=== PATIENT | male | born 1930 | race Caucasian/White ===

== ENCOUNTER 2017-09-05 10:06 | Inpatient (IN) | payer MEDICARE, OTHER ==
[2017-09-05] MEDS ORDERED: Sodium Chloride 0.9% 100 ML ONE (11:01)
[2017-09-05 11:10] LABS: PTT 26.4 SEC (22.9-36.1); Prothrombin Time 13.3 SEC (12.0-14.7)
[2017-09-05 11:11] LABS: Hematocrit 41.2 % (42.0-52.0); Mean Platelet Volume 8.3 fL (7.4-10.4); Red Blood Cell (RBC) Count 4.58 mill/uL (4.70-6.10); White Blood Cell (WBC) Count 15.1 thou/uL (4.8-10.8)
--- NOTE | 2017-09-05 11:23 | RAD ---
THREE VIEWS LEFT ANKLE: HISTORY: Left ankle pain. FINDINGS: AP, lateral, and oblique views left ankle were obtained. Images demonstrate old healed fractures involving the distal left fibula and tibia. No acute fractu res or bony lesions seen. IMPRESSION: Old healed distal left tibial and fibula fractures. No acute left ankle abnormality seen. POS: [facility]
--- NOTE | 2017-09-05 11:25 | RAD ---
AP VIEW CHEST: HISTORY: Dyspnea. FINDINGS: Two AP views of the chest were obtained on 09/05/17. Comparison is made to a previous exam from 03/09. AP view chest demonstrates cardiomegaly noted. A dual-lead intracardiac pacing device is seen. The re is calcification and ectasia of the aorta. Areas of scar are seen in the right lung base. Radio graphic appearance of the chest is stable and unchanged. Old traumatic change is seen in the right shoulder and distal right clavicle. 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 IMPRESSION: No evidence of acute intrathoracic abnormality is seen. Cardiomegaly is noted. POS: [facility]
[2017-09-05 11:29] LABS: Troponin I 0.011 ng/mL (< 0.028)
[2017-09-05 11:39] LABS: Bilirubin Negative (Negative); Blood, Urine Negative (Negative); Glucose, Urine (Dipstick) Negative (Negative); Ketone, Urine Negative (Negative); Nitrite Negative (Negative); Protein, Urine (Dipstick) Negative (Neg-Trace); Urobilinogen 0.2 mg/dL (0.2-1.0)
[2017-09-05 11:39] LABS: ALT (SGPT) 10 U/L (8-55); AST (SGOT) 14 U/L (5-34); Alkaline Phosphatase 80 U/L (40-150); Anion Gap 11 mmol/L (10-20); BUN (Urea Nitrogen) 42 mg/dL (8.4-25.7); Bilirubin, Total 0.5 mg/dL (0.2-1.2); CK (CPK) 72 U/L (30-200); Calc. Creatinine Clearance 0 mL/min (70-130); Carbon Dioxide 28 mmol/L (23-31); Chloride 104 mmol/L (98-107); Estimated GFR-MDRD 74; Globulin 2.2 g/dL (2.4-3.5); Lipase 31 U/L (8-78); Protein, Total 5.8 g/dL (5.8-8.1)
[2017-09-05 11:42] LABS: Bacteria/HPF 4+ HPF (None Seen); Hyaline Casts/LPF 0-3 HYALINE CAST LPF (0-3 Hyaline); RBC/HPF 0-3 HPF (0-3); Squamous Epithelial 0-3 HPF (0-3)
[2017-09-05 11:45] LABS: Band 1 % (5-11); Neutrophil 53 % (42-75)
[2017-09-05] MEDS ORDERED: HYDROcodone/Acetaminophen 5/325 mg Tablet PO PRN (12:43)
[2017-09-05] MEDS ORDERED: Calcium Carbonate 500 MG ChewTAB PO PRN (12:43)
[2017-09-05] MEDS ORDERED: Bisacodyl 5 MG TAB PO PRN (12:43)
[2017-09-05] MEDS ORDERED: Acetaminophen 325 MG TAB PO PRN (12:43)
[2017-09-05] MEDS ORDERED: Ondansetron ODT 4 MG TAB PO PRN (12:43)
[2017-09-05] MEDS ORDERED: Furosemide 20 MG TAB PO PRN (12:48)
--- NOTE | 2017-09-05 13:42 | HP ---
CHIEF COMPLAINT: Left ankle pain. HISTORY OF PRESENT ILLNESS: This is an 86-year-old pleasant gentleman who lives in assisted facilit y, started having some throbbing pain in his left leg 1 week back. He also started noticing a small opening, possibly secondary to a bug bite. He is not sure which actually grew in size, but right n ow patient came into the hospital because the redness and pain increased and he was concerned that h e was developing cellulitis. The patient denied any subjective fever or chills. No nausea, vomitin g, chest pain, shortness of breath. Patient has been admitted for evaluation and treatment of that. PAST MEDICAL HISTORY: Significant for pacemaker placement in 02/[address] Reynaga, who is his c ardiologist, Dr. John Castillo, who is his regular doctor. 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 PAST SURGICAL HISTORY: Significant for colon surgery, hernia repair, right knee replaced, dc in th e femur, prostatectomy, and tonsillectomy. SOCIAL HISTORY: Does not smoke, drink or do any recreational drugs. MEDICATIONS: Please see MARS. Significant medications include citalopram 40 mg p.o. daily, Imbruvi ca 140 mg p.o. daily, lisinopril 20 mg p.o. daily, meloxicam p.r.n., spironolactone 25 p.o. daily, f exofenadine p.r.n., Lasix 20 mg p.o. daily, aspirin 325 mg p.o. daily, and gabapentin [facility]. ALLERGIES: No known drug allergies. FAMILY HISTORY: Negative for diabetes and hypertension. REVIEW OF SYSTEMS: Significant for no fever, no chills, no headache, no appetite, no latencies. No cough, no chest pain, diarrhea, dysuria, or polyuria. No memory or mood changes. No neck pain. S ignificant for leg pain and cellulitis. PHYSICAL EXAMINATION: VITAL SIGNS: Blood pressure is 138/57, pulse is 89, afebrile, breathing comfortably on room air. GENERAL: The patient is lying in bed in no apparent distress. HEENT: Atraumatic and normocephalic. Pupils equally round, react to light. Extraocular movements intact. Mucous membranes moist. NECK: Supple. No JVD. CHEST: Breath sounds heard. There are no rales or rhonchi. HEART: S1, S2, no murmurs or gallops. ABDOMEN: Soft. EXTREMITIES: No cyanosis, clubbing, or edema. Distal pulses present. Left extremity shows some fu ngal infection in the nail, thick nails, and groomed. Ankle on the medial malleolus on the left ank le shows open wound which is dry, no drainage from it cellulitis. There is erythema extending from the foot to the mid of the calf and it is tender to touch. The patient's right leg shows no cyanosi s, clubbing, edema. Distal pulses present. NEUROLOGIC: Alert, awake, oriented. No cranial nerve deficits. No sensorimotor deficits. LABORATORY DATA AND IMAGING: UA shows 11-20 wbc's. WBC count is 15, lipase 31, CK is 72, potassium is 4.8, creatinine is 0.9. BNP is 49. Lactic acid is 1.0. Chest x-ray is negative. Ankle x-ray shows old healed fractures, no abscess. ASSESSMENT AND PLAN: 1. Left lower leg cellulitis. We will do IV antibiotics and blood cultures, and monitor the patien t. 2. Sepsis secondary to cellulitis. Please refer to #1. 3. Possible urinary tract infection. We will do urine cultures. 4. Diastolic congestive heart failure, stable. 5. Hypertension, stable. 6. History of Waldenstrom's lipoma, stable. 7. History of pacemaker done in 02/2017, stable. 8. Lovenox for deep venous thrombosis prophylaxis. I will follow the labs and do the needful.
[2017-09-05] MEDS ORDERED: VANCOMYCIN IVPB PRN (14:44)
[2017-09-05] MEDS ORDERED: Piperacillin/Tazobactam 3.375 GM in Sodium Chloride 0.9% 100 ML IVPB SCH (15:00)
[2017-09-05 15:17] VITALS: BMI 29.5
[2017-09-05] MEDS ORDERED: FLU VACC TS2017-18 (>65YR) 0.5 ML SYRINGE IM ONE (16:00)
[2017-09-05] MEDS: Piperacillin/Tazobactam 3.375 GM in Sodium Chloride 0.9% 100 ML IVPB SCH (18:22)
[2017-09-05] MEDS: Gabapentin 300 MG CAP PO SCH (20:33)
[2017-09-05] MEDS ORDERED: Vancomycin HCl 1 GM in Sodium Chloride 0.9% 250 ML 250 ML IVPB SCH (21:00)
[2017-09-06] MEDS: Piperacillin/Tazobactam 3.375 GM in Sodium Chloride 0.9% 100 ML IVPB SCH ×5 (00:42→23:38)
[2017-09-06 06:54] LABS: #Basophils 0.1 thou/uL (0.0-0.2); #Eosinphils 0.5 thou/uL (0.0-0.7); #Monocytes 1.1 thou/uL (0.11-0.59); #Neutrophils 7.7 thou/uL (1.40-6.50); %Basophils 0.6 % (0.0-1.0); %Eosinophils 3.5 % (0.0-10.0); %Lymphocytes 30.2 % (21.0-51.0); %Monocytes 8.1 % (0.0-10.0); Hematocrit 40.7 % (42.0-52.0); Mean Platelet Volume 8.8 fL (7.4-10.4); Red Blood Cell (RBC) Count 4.47 mill/uL (4.70-6.10); White Blood Cell (WBC) Count 13.3 thou/uL (4.8-10.8)
[2017-09-06 07:16] LABS: Anion Gap 10 mmol/L (10-20); BUN (Urea Nitrogen) 33 mg/dL (8.4-25.7); BUN/Creatinine Ratio 32.35; Calc. Creatinine Clearance 66 mL/min (70-130); Calcium 8.8 mg/dL (7.8-10.44); Carbon Dioxide 28 mmol/L (23-31); Chloride 104 mmol/L (98-107); Estimated GFR-MDRD 69; Phosphorus 3.4 mg/dL (2.3-4.7)
[2017-09-06] MEDS: Aspirin 325 MG TAB PO SCH (08:13)
[2017-09-06] MEDS: Lisinopril 20 MG TAB PO SCH (08:16)
[2017-09-06] MEDS: Enoxaparin Sodium 30 MG/0.3 ML SYRINGE SC SCH (08:19)
[2017-09-06] MEDS ORDERED: IBRUTINIB 140 MG PO SCH ×2 (09:00→11:45)
--- NOTE | 2017-09-06 12:42 | PDOC.PN ---
- Subjective Encounter Start Date: 09/06/17 Encounter Start Time: 09:40 Subjective: pain is slightly better in his left leg -: no sob - Objective MAR Reviewed: Yes Vital Signs & Weight: Vital Signs (12 hours) Temp Pulse Resp BP BP Pulse Ox 09/06/17 08:00 97.4 F L 55 L 20 96/58 L 96 09/06/17 04:00 97.4 F L 77 20 114/59 L 100 I&O: 09/05/17 09/06/17 09/07/17 06:59 06:59 06:59 Intake Total 700 Output Total 1 Balance 699 Result Diagrams: 09/06/17 05:51 09/06/17 05:51 Phys Exam - Physical Examination HEENT: PERRLA, moist MMs Neck: no JVD, supple Respiratory: no wheezing, no rales Cardiovascular: RRR, no significant murmur Gastrointestinal: soft, non-tender, positive bowel sounds Musculoskeletal: pulses present, edema present left leg ulcer Neurological: non-focal, moves all 4 limbs Psychiatric: A&O x 3 Dx/Plan (1) Cellulitis of left leg Code(s): L03.116 - CELLULITIS OF LEFT LOWER LIMB Status: Acute (2) BPH (benign prostatic hyperplasia) Code(s): N40.0 - BENIGN PROSTATIC HYPERPLASIA WITHOUT LOWER URINRY TRACT SYMP Status: Chronic Qualifiers: Lower urinary tract symptom detail: unspecified (3) Chronic diastolic (congestive) heart failure Code(s): I50.32 - CHRONIC DIASTOLIC (CONGESTIVE) HEART FAILURE Status: Chronic (4) Dyslipidemia Code(s): E78.5 - HYPERLIPIDEMIA, UNSPECIFIED Status: Chronic (5) Hypertension Code(s): I10 - ESSENTIAL (PRIMARY) HYPERTENSION Status: Chronic Qualifiers: Hypertension type: essential hypertension Qualified Code(s): I10 - Essential (primary) hypertension (6) Waldenstrom macroglobulinemia Code(s): C88.0 - WALDENSTROM MACROGLOBULINEMIA Status: Chronic - Plan is on vanc and zosyn -: wbc is down to 13 from 15 -: pt to wear his stockings for LE (not sure if the hospital has his size) -: will get usg venous doppler to r/o dvt * . Review of Systems - Medications/Allergies Allergies/Adverse Reactions: Allergies Allergy/AdvReac Type Severity Reaction Status Date / Time No Known Allergies Allergy Verified 03/09/17 23:08 Medications: Current Medications Acetaminophen (Tylenol) 650 mg PO Q4H PRN PRN Reason: Headache/Fever or Pain Hydrocodone Bitart/Acetaminophen ([place] 5/325) 1 tab PO Q4H PRN PRN Reason: Moderate Pain (4-6) Aspirin (Aspirin) 325 mg PO DAILY [facility] Last Admin: 09/06/17 08:13 Dose: 325 mg Bisacodyl (Dulcolax) 10 mg PO DAILYPRN PRN PRN Reason: Constipation Calcium Carbonate (Tums) 1,000 mg PO Q4H PRN PRN Reason: Heartburn or Indigestion Citalopram Hydrobromide (Celexa) 40 mg PO DAILY [facility] Last Admin: 09/06/17 08:13 Dose: 40 mg Enoxaparin Sodium (Lovenox) 30 mg SC 0900 [facility] Last Admin: 09/06/17 08:19 Dose: 30 mg Furosemide (Lasix) 20 mg PO QAM PRN PRN Reason: Edema Gabapentin (Neurontin) 600 mg PO HS [facility] Last Admin: 09/05/17 20:33 Dose: 600 mg Vancomycin HCl 1.5 gm/ Sodium (Chloride) 300 mls @ 200 mls/hr IVPB 1200 [facility] Piperacillin Sod/Tazobactam (Sod 3.375 gm/ Sodium Chloride) 100 mls @ 200 mls/ hr IVPB Q6HR [facility] Last Admin: 09/06/17 11:29 Dose: 100 mls Lisinopril (Zestril) 20 mg PO DAILY [facility] Last Admin: 09/06/17 08:16 Dose: Not Given Miscellaneous Medication (Pharmacy To Dose) 1 each IVPB PRN PRN PRN Reason: PHARMACY TO DOSE Ondansetron HCl (Zofran Odt) 4 mg PO Q6H PRN PRN Reason: Nausea/Vomiting Ibrutinib [Imbruvica (] 140 Mg Cap) 0 each PO DAILY [facility] Ibrutinib [Imbruvica (] 140 Mg Cap) 0 each PO NOW [facility] Stop: 09/06/17 13:45 Sodium Chloride (Flush - Normal Saline) 10 ml IVF Q12HR [facility] Last Admin: 09/06/17 08:20 Dose: 10 ml Sodium Chloride (Flush - Normal Saline) 10 ml IVF PRN PRN PRN Reason: Saline Flush
[2017-09-06] MEDS: Vancomycin HCl 1.5 GM in Sodium Chloride 0.9% 250 ML 300 ML IVPB SCH (12:44)
--- NOTE | 2017-09-06 15:13 | ULT ---
BILATERAL LOWER EXTREMITY VENOUS DUPLEX SONOGRAM: History: Bilateral leg pain and edema. FINDINGS: Each common femoral vein and greater saphenous junction were evaluated along with each femoral, deep femoral, popliteal, and posterior tibial vein. There is good color, doppler flow and compression. IMPRESSION: No sonographic evidence of DVT within either lower extremity. POS: [facility]
[2017-09-06] MEDS: Gabapentin 300 MG CAP PO SCH (21:19)
[2017-09-07] MEDS: Piperacillin/Tazobactam 3.375 GM in Sodium Chloride 0.9% 100 ML IVPB SCH ×3 (05:35→17:41)
[2017-09-07 06:27] LABS: #Basophils 0.1 thou/uL (0.0-0.2); #Eosinphils 0.5 thou/uL (0.0-0.7); #Lymphocytes 3.5 thou/uL (1.20-3.40); #Monocytes 0.8 thou/uL (0.11-0.59); %Basophils 0.6 % (0.0-1.0); %Eosinophils 4.9 % (0.0-10.0); %Lymphocytes 35.5 % (21.0-51.0); %Monocytes 7.9 % (0.0-10.0); Hematocrit 39.9 % (42.0-52.0); Mean Platelet Volume 8.8 fL (7.4-10.4); Red Blood Cell (RBC) Count 4.36 mill/uL (4.70-6.10); White Blood Cell (WBC) Count 9.8 thou/uL (4.8-10.8)
[2017-09-07] MEDS: Aspirin 325 MG TAB PO SCH (09:23)
[2017-09-07] MEDS: Enoxaparin Sodium 30 MG/0.3 ML SYRINGE SC SCH (09:23)
[2017-09-07] MEDS: Lisinopril 20 MG TAB PO SCH (09:24)
[2017-09-07] MEDS: IBRUTINIB 140 MG PO SCH (09:28)
[2017-09-07 11:57] LABS: Vancomycin, Trough 8.8 ug/mL
--- NOTE | 2017-09-07 12:51 | PQF ---
KEISHA OLSEN JR, SHYANNE CORRAL MD [id number] [id number] CLINICAL DOCUMENTATION IMPROVEMENT CLARIFICATION FORM: ICD-10 Updated PLEASE DO AN ADDENDUM TO THE PROGRESS NOTE WITH ANY DOCUMENTATION UPDATES OR ADDITIONS AND CARRY THROUGH TO DC SUMMARY. THANK YOU. DATE: 09-07-17 ATTN: DR. COULTER Please exercise your independent, professional judgment in responding to the clarification form. Clinical indicators are provided on the bottom of this form for your review Please check appropriate box(s): ___x____ I (concur) with the NURSING ASSESSMENT findings as stated below. [ ] Pressure Ulcer: (Stage I: Erythema; Stage II: Partial thickness; Stage III : Full thickness; Stage IV: Necrosis to muscle/bone) [ ] Location: POA: [ ] Yes [ ] No[ ] Unable to determine Stage (I to IV): (Left Right Bilateral N/A ) [ ] Location: POA: [ ] Yes [ ] No[ ] Unable to determine Stage (I to IV): (Left Right Bilateral N/A [ ] No pressure ulcer diagnosis [ ] Deep tissue injury [ ] Other diagnosis [ ] Unable to determine In addition, please specify: Present on Admission (POA): [ x ] Yes [ ] No [ ] Unable to determine For continuity of documentation, please document condition throughout progress notes and discharge summary. Thank You. CLINICAL INDICATORS - SIGNS / SYMPTOMS / LABS 09-05 @ 9850 NURSING ASSESSMENT: LEFT BUTTOCK AND RIGHT BUTTOCK STAGE 2 PRESSURE ULCER RISK FACTORS: NURSING ASSESSMENT 09-05: STANDBY ASSISTANCE; ROLLING WALKER; TREATMENTS:NURSING ASSESSMENT: ULCER DRESSING TYPE - MEPILEX AVOID BAR SOAPS FOOT OF BED RAISED WHEN HOB UP TO REDUCE FRICTION AND SHEAR LOTION/CREAM TO DRY SKIN. BRI PROMINENCE MASSAGE AVOIDED MEASURES TO INCREASE MOBILITY ONLY 1 DRAW SHEET UNDER PT CHANGE POSITIONS Q2H PRESSURE REDUCING CUSHION USED WHEN IN W/C OR CHAIR SKIN KEPT FROM EXCESSIVE MOISTURE THANK YOU, CHAYO (This form is maintained as a part of the permanent medical record) 2015 [employer]. All Rights Reserved Chayo Dave RN, BS [email or web address] [facility]
--- NOTE | 2017-09-07 13:33 | PDOC.PN ---
- Subjective Encounter Start Date: 09/07/17 Encounter Start Time: 08:35 Subjective: feels better, redness is slowly receding, mild pain but is a lot better per -: -patient - Objective MAR Reviewed: Yes Vital Signs & Weight: Vital Signs (12 hours) Temp Pulse Resp BP BP BP Pulse Ox 09/07/17 12:08 97.7 F 61 16 124/79 93 L 09/07/17 09:24 157/65 H 09/07/17 08:00 97.4 F L 65 16 96 09/07/17 07:25 97.4 F L 65 16 157/65 H 96 09/07/17 04:00 97.4 F L 86 20 147/54 H 97 I&O: 09/06/17 09/07/17 09/08/17 06:59 06:59 06:59 Intake Total 700 940 Output Total 1 500 Balance 699 440 Result Diagrams: 09/07/17 05:46 09/06/17 05:51 Phys Exam - Physical Examination HEENT: PERRLA, moist MMs Neck: no JVD, supple Respiratory: no wheezing, no rales Cardiovascular: RRR, no significant murmur Gastrointestinal: soft, non-tender, positive bowel sounds Musculoskeletal: pulses present, edema present left LE erythema and edema is slowly receding Neurological: non-focal, moves all 4 limbs Psychiatric: A&O x 3 Dx/Plan (1) Cellulitis of left leg Code(s): L03.116 - CELLULITIS OF LEFT LOWER LIMB Status: Acute (2) BPH (benign prostatic hyperplasia) Code(s): N40.0 - BENIGN PROSTATIC HYPERPLASIA WITHOUT LOWER URINRY TRACT SYMP Status: Chronic Qualifiers: Lower urinary tract symptom detail: unspecified (3) Chronic diastolic (congestive) heart failure Code(s): I50.32 - CHRONIC DIASTOLIC (CONGESTIVE) HEART FAILURE Status: Chronic (4) Dyslipidemia Code(s): E78.5 - HYPERLIPIDEMIA, UNSPECIFIED Status: Chronic (5) Hypertension Code(s): I10 - ESSENTIAL (PRIMARY) HYPERTENSION Status: Chronic Qualifiers: Hypertension type: essential hypertension Qualified Code(s): I10 - Essential (primary) hypertension (6) Waldenstrom macroglobulinemia Code(s): 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 Review of Systems - Medications/Allergies Allergies/Adverse Reactions: Allergies Allergy/AdvReac Type Severity Reaction Status Date / Time No Known Allergies Allergy Verified 03/09/17 23:08 Medications: Current Medications Acetaminophen (Tylenol) 650 mg PO Q4H PRN PRN Reason: Headache/Fever or Pain Hydrocodone Bitart/Acetaminophen ([place] 5/325) 1 tab PO Q4H PRN PRN Reason: Moderate Pain (4-6) Aspirin (Aspirin) 325 mg PO DAILY [facility] Last Admin: 09/07/17 09:23 Dose: 325 mg Bisacodyl (Dulcolax) 10 mg PO DAILYPRN PRN PRN Reason: Constipation Calcium Carbonate (Tums) 1,000 mg PO Q4H PRN PRN Reason: Heartburn or Indigestion Citalopram Hydrobromide (Celexa) 40 mg PO DAILY [facility] Last Admin: 09/07/17 09:23 Dose: 40 mg Enoxaparin Sodium (Lovenox) 30 mg SC 0900 [facility] Last Admin: 09/07/17 09:23 Dose: 30 mg Furosemide (Lasix) 20 mg PO QAM PRN PRN Reason: Edema Gabapentin (Neurontin) 600 mg PO HS [facility] Last Admin: 09/06/17 21:19 Dose: 600 mg Piperacillin Sod/Tazobactam (Sod 3.375 gm/ Sodium Chloride) 100 mls @ 200 mls/ hr IVPB Q6HR [facility] Last Admin: 09/07/17 11:35 Dose: 100 mls Vancomycin HCl 1.25 gm/ Sodium (Chloride) 250 mls @ 166.667 mls/hr IVPB 0100, 1300 [facility] Lisinopril (Zestril) 20 mg PO DAILY [facility] Last Admin: 09/07/17 09:24 Dose: 20 mg Miscellaneous Medication (Pharmacy To Dose) 1 each IVPB PRN PRN PRN Reason: PHARMACY TO DOSE Ondansetron HCl (Zofran Odt) 4 mg PO Q6H PRN PRN Reason: Nausea/Vomiting Ibrutinib [Imbruvica (] 140 Mg Cap) 0 each PO DAILY [facility] Last Admin: 09/07/17 09:28 Dose: 1 each Saccharomyces Boulardii (Florastor) 250 mg PO DAILY [facility] Sodium Chloride (Flush - Normal Saline) 10 ml IVF Q12HR [facility] Last Admin: 09/07/17 09:28 Dose: 10 ml Sodium Chloride (Flush - Normal Saline) 10 ml IVF PRN PRN PRN Reason: Saline Flush
[2017-09-07] MEDS: Vancomycin HCl 1.25 GM in Sodium Chloride 0.9% 250 ML 250 ML IVPB SCH (13:59)
[2017-09-07] MEDS: Vancomycin HCl 1.5 GM in Sodium Chloride 0.9% 250 ML 300 ML IVPB SCH (17:47)
[2017-09-07] MEDS: Gabapentin 300 MG CAP PO SCH (20:46)
[2017-09-08] MEDS: Vancomycin HCl 1.25 GM in Sodium Chloride 0.9% 250 ML 250 ML IVPB SCH ×2 (01:03→11:51)
[2017-09-08] MEDS: Piperacillin/Tazobactam 3.375 GM in Sodium Chloride 0.9% 100 ML IVPB SCH ×5 (01:03→23:56)
--- NOTE | 2017-09-08 06:41 | EKG ---
Test Reason : Blood Pressure : / mmHG Vent. Rate : 060 BPM Atrial Rate : 039 BPM P-R Int : 000 ms QRS Dur : 176 ms QT Int : 506 ms P-R-T Axes : 000 -78 089 degrees QTc Int : 506 ms AV sequential or dual chamber electronic pacemaker Confirmed by AMADO GOLDBERG, FRANCESCA (12), avid editor GEORGINA POLLACK (40) on 09/08/2017 6:41:17 AM Referred By: Confirmed By:FRANCESCA FISCHER MD
[2017-09-08] MEDS: Lisinopril 20 MG TAB PO SCH (07:57)
[2017-09-08] MEDS: IBRUTINIB 140 MG PO SCH (07:58)
[2017-09-08] MEDS: Saccharomyces boulardii 250 MG CAP PO SCH (07:58)
[2017-09-08] MEDS: Aspirin 325 MG TAB PO SCH (07:58)
[2017-09-08] MEDS: Enoxaparin Sodium 30 MG/0.3 ML SYRINGE SC SCH (07:59)
--- NOTE | 2017-09-08 10:55 | PDOC.PN ---
- Subjective Encounter Start Date: 09/08/17 Encounter Start Time: 08:45 Subjective: is feeling better -: has his home compression socks on - Objective MAR Reviewed: Yes Vital Signs & Weight: Vital Signs (12 hours) Temp Pulse Resp BP BP BP Pulse Ox 09/08/17 08:00 97.5 F L 83 16 09/08/17 07:57 155/75 H 09/08/17 07:51 97.5 F L 83 16 155/75 H 93 L 09/08/17 04:00 97.5 F L 75 18 146/76 H 98 09/08/17 00:00 97.7 F 79 18 109/63 92 L I&O: 09/07/17 09/08/17 09/09/17 06:59 06:59 06:59 Intake Total 940 710 480 Output Total 500 300 Balance 440 410 480 Result Diagrams: 09/07/17 05:46 09/06/17 05:51 Phys Exam - Physical Examination HEENT: PERRLA, moist MMs Neck: no JVD, supple Respiratory: no wheezing, no rales Cardiovascular: RRR, no significant murmur Gastrointestinal: soft, non-tender, positive bowel sounds Musculoskeletal: pulses present erythema and edema is receding from left LE Neurological: non-focal, moves all 4 limbs Psychiatric: normal affect, A&O x 3 Dx/Plan (1) Cellulitis of left leg Code(s): L03.116 - CELLULITIS OF LEFT LOWER LIMB Status: Acute (2) BPH (benign prostatic hyperplasia) Code(s): N40.0 - BENIGN PROSTATIC HYPERPLASIA WITHOUT LOWER URINRY TRACT SYMP Status: Chronic Qualifiers: Lower urinary tract symptom detail: unspecified (3) Chronic diastolic (congestive) heart failure Code(s): I50.32 - CHRONIC DIASTOLIC (CONGESTIVE) HEART FAILURE Status: Chronic (4) Dyslipidemia Code(s): E78.5 - HYPERLIPIDEMIA, UNSPECIFIED Status: Chronic (5) Hypertension Code(s): I10 - ESSENTIAL (PRIMARY) HYPERTENSION Status: Chronic Qualifiers: Hypertension type: essential hypertension Qualified Code(s): I10 - Essential (primary) hypertension (6) Waldenstrom macroglobulinemia Code(s): C88.0 - WALDENSTROM MACROGLOBULINEMIA Status: Chronic (7) UTI (urinary tract infection) Status: Acute Qualifiers: Urinary tract infection type: acute cystitis Hematuria presence: without hematuria Qualified Code(s): N30.00 - Acute cystitis without hematuria - Plan is on vanc and zosyn -: await urine cs results -: dc plan in am on augmentin for 10 days -: continue compression socks for LE -: cellulitis is resolving, wound care * . Review of Systems - Medications/Allergies Allergies/Adverse Reactions: Allergies Allergy/AdvReac Type Severity Reaction Status Date / Time No Known Allergies Allergy Verified 03/09/17 23:08 Medications: Current Medications Acetaminophen (Tylenol) 650 mg PO Q4H PRN PRN Reason: Headache/Fever or Pain Hydrocodone Bitart/Acetaminophen ([place] 5/325) 1 tab PO Q4H PRN PRN Reason: Moderate Pain (4-6) Aspirin (Aspirin) 325 mg PO DAILY [facility] Last Admin: 09/08/17 07:58 Dose: 325 mg Bisacodyl (Dulcolax) 10 mg PO DAILYPRN PRN PRN Reason: Constipation Calcium Carbonate (Tums) 1,000 mg PO Q4H PRN PRN Reason: Heartburn or Indigestion Citalopram Hydrobromide (Celexa) 40 mg PO DAILY [facility] Last Admin: 09/08/17 07:57 Dose: 40 mg Enoxaparin Sodium (Lovenox) 30 mg SC 0900 [facility] Last Admin: 09/08/17 07:59 Dose: 30 mg Furosemide (Lasix) 20 mg PO QAM PRN PRN Reason: Edema Gabapentin (Neurontin) 600 mg PO HS [facility] Last Admin: 09/07/17 20:46 Dose: 600 mg Piperacillin Sod/Tazobactam (Sod 3.375 gm/ Sodium Chloride) 100 mls @ 200 mls/ hr IVPB Q6HR [facility] Last Admin: 09/08/17 04:56 Dose: 100 mls Vancomycin HCl 1.25 gm/ Sodium (Chloride) 250 mls @ 166.667 mls/hr IVPB 0100, 1300 [facility] Last Admin: 09/08/17 01:03 Dose: 250 mls Lisinopril (Zestril) 20 mg PO DAILY [facility] Last Admin: 09/08/17 07:57 Dose: 20 mg Miscellaneous Medication (Pharmacy To Dose) 1 each IVPB PRN PRN PRN Reason: PHARMACY TO DOSE Ondansetron HCl (Zofran Odt) 4 mg PO Q6H PRN PRN Reason: Nausea/Vomiting Ibrutinib [Imbruvica (] 140 Mg Cap) 0 each PO DAILY [facility] Last Admin: 09/08/17 07:58 Dose: 1 each Saccharomyces Boulardii (Florastor) 250 mg PO DAILY [facility] Last Admin: 09/08/17 07:58 Dose: 250 mg Sodium Chloride (Flush - Normal Saline) 10 ml IVF Q12HR [facility] Last Admin: 09/08/17 07:58 Dose: 10 ml Sodium Chloride (Flush - Normal Saline) 10 ml IVF PRN PRN PRN Reason: Saline Flush
[2017-09-08] MEDS: Gabapentin 300 MG CAP PO SCH (19:53)
[2017-09-09 00:46] LABS: Vancomycin, Trough 17.1 ug/mL
[2017-09-09] MEDS: Vancomycin HCl 1.25 GM in Sodium Chloride 0.9% 250 ML 250 ML IVPB SCH ×2 (01:48→19:03)
[2017-09-09] MEDS: Piperacillin/Tazobactam 3.375 GM in Sodium Chloride 0.9% 100 ML IVPB SCH ×3 (05:37→19:03)
[2017-09-09] MEDS: Enoxaparin Sodium 30 MG/0.3 ML SYRINGE SC SCH (08:34)
[2017-09-09] MEDS: IBRUTINIB 140 MG PO SCH (08:34)
[2017-09-09] MEDS: Aspirin 325 MG TAB PO SCH (08:36)
[2017-09-09] MEDS: Lisinopril 20 MG TAB PO SCH (08:36)
[2017-09-09] MEDS: Saccharomyces boulardii 250 MG CAP PO SCH (08:36)
--- NOTE | 2017-09-09 13:47 | PDOC.PN ---
- Subjective Encounter Start Date: 09/09/17 Encounter Start Time: 07:00 Subjective: feels better, wants to go home - Objective MAR Reviewed: Yes Vital Signs & Weight: Vital Signs (12 hours) Temp Pulse Resp BP BP Pulse Ox 09/09/17 08:36 159/80 H 09/09/17 08:00 97.4 F L 70 18 159/80 H 94 L I&O: 09/08/17 09/09/17 09/10/17 06:59 06:59 06:59 Intake Total 710 3060 Output Total 300 100 Balance 410 2960 Result Diagrams: 09/07/17 05:46 09/06/17 05:51 Phys Exam - Physical Examination HEENT: PERRLA, moist MMs Neck: no JVD, supple Respiratory: no wheezing, no rales Cardiovascular: RRR, no significant murmur Gastrointestinal: soft, non-tender, positive bowel sounds Musculoskeletal: pulses present, edema present Neurological: non-focal, moves all 4 limbs Psychiatric: A&O x 3 Dx/Plan (1) Cellulitis of left leg Code(s): L03.116 - CELLULITIS OF LEFT LOWER LIMB Status: Acute (2) BPH (benign prostatic hyperplasia) Code(s): N40.0 - BENIGN PROSTATIC HYPERPLASIA WITHOUT LOWER URINRY TRACT SYMP Status: Chronic Qualifiers: Lower urinary tract symptom detail: unspecified (3) Chronic diastolic (congestive) heart failure Code(s): I50.32 - CHRONIC DIASTOLIC (CONGESTIVE) HEART FAILURE Status: Chronic (4) Dyslipidemia Code(s): E78.5 - HYPERLIPIDEMIA, UNSPECIFIED Status: Chronic (5) Hypertension Code(s): I10 - ESSENTIAL (PRIMARY) HYPERTENSION Status: Chronic Qualifiers: Hypertension type: essential hypertension Qualified Code(s): I10 - Essential (primary) hypertension (6) Waldenstrom macroglobulinemia Code(s): C88.0 - WALDENSTROM MACROGLOBULINEMIA Status: Chronic (7) UTI (urinary tract infection) Status: Acute Qualifiers: Urinary tract infection type: acute cystitis Hematuria presence: without hematuria Qualified Code(s): N30.00 - Acute cystitis without hematuria - Plan hemostable -: keflex for 1 week -: HH with wound care on discharge today -: to f/u with PCP In 1 week -: counselled reg wearing his compression sock if he is upright * .
[2017-09-09 13:51] VITALS: TEMP 97.7
--- NOTE | 2017-09-09 14:51 | PQF ---
KEISHA OLSEN JR, VINAYA KUMAR MD [id number] [facility] [id number] CLINICAL DOCUMENTATION IMPROVEMENT CLARIFICATION FORM: ICD-10 Updated PLEASE DO AN ADDENDUM TO THE PROGRESS NOTE WITH ANY DOCUMENTATION UPDATES OR ADDITIONS AND CARRY THROUGH TO DC SUMMARY. THANK YOU. DATE: 09-09-17 ATTN: DR. COULTER Please exercise your independent, professional judgment in responding to the clarification form. Clinical indicators are provided on the bottom of this form for your review Please check appropriate box(s) to clarify if the following diagnosis has been ruled in our ruled out: H&P: SEPSIS SECONDARY TO CELLULITIS [ x ] Sepsis Ruled In [ ] Continue to treat [ ] Resolved [ ] Sepsis Ruled out [ ] Cannot rule out Sepsis [ ] Other diagnosis [ ] Unable to determine In addition, please specify: Present on Admission (POA): [ x] Yes [ ] No [ ] Unable to determine For continuity of documentation, please document condition throughout progress notes and discharge summary. Thank You. CLINICAL INDICATORS - SIGNS / SYMPTOMS / LABS H&P: SEPSIS SECONDARY TO CELLULITIS WBC: 10-7 15.1 RISK FACTORS H&P: THROBBING PAIN LEFT LEG POSSIBLY BUG BITE CELLULITIS UTI TREATMENTS COPE: VANCOMYCIN IV - TO 09-09 ZOSYN IV 10- TO 09-09 COPE: BLD CULTURES - NO GROWTH AT 48 HOURS URINE CLEAN CATCH - E. COLI THANK YOU, CHAYO (This form is maintained as a part of the permanent medical record) 2014 [employer], [employer]. All Rights Reserved Chayo Dave RN, BS [email or web address] Cell [facility]
[2017-09-09 16:46] VITALS: BP 175/80
--- NOTE | 2017-09-09 23:37 | DIS ---
DATE OF ADMISSION: 09/05/2017 DATE OF DISCHARGE: 09/09/2017 DISCHARGE DISPOSITION: To home. PRIMARY DISCHARGE DIAGNOSIS: Cellulitis of left leg with sepsis, resolving. SECONDARY DISCHARGE DIAGNOSES: Urinary tract infection, congestive heart failure with diastolic dys function, dyslipidemia, benign prostatic hypertrophy, hypertension, Waldenstrom macroglobulinemia. PROCEDURES DONE DURING HOSPITALIZATION: Ultrasound venous Doppler of lower extremities done showed no evidence of DVT. Ankle x-ray done showed no acute abnormality. There is old healed distal left tibia and fibular fracture. Chest x-ray done showed cardiomegaly, otherwise no acute intrathoracic abnormality. Blood cultures x2, no growth. Urine culture grew E. coli sensitive to all organisms. Stool for C. diff x1 is negative. Had a white count of 15 on the day of admission with discharge n umbers of 9.8. Discharge BUN and creatinine is 33 and 1.0. CRP was 3.4. DISCHARGE MEDICATIONS: Keflex 500 mg p.o. three times daily for 7 days, aspirin 325 mg p.o. daily, citalopram 40 mg p.o. daily, Lasix 20 mg p.o. daily p.r.n. for fluid accumulation in the legs, gabap entin 600 mg p.o. at bedtime, ibrutinib as before, lisinopril 20 mg p.o. daily, Mobic p.r.n., Floras tor 250 mg p.o. daily for another 15 days, spironolactone 12.5 mg p.o. daily. ALLERGIES: No known drug allergies. DISCHARGE PLAN: Patient is to follow up with primary care physician in 1 week. BRIEF COURSE DURING HOSPITALIZATION: Patient initially got admitted on 09/05/2017 with complaints o f left ankle pain with swelling and redness. He was diagnosed with left lower extremity cellulitis with a small ulcer as well and sepsis. He was placed on IV antibiotics and pancultured. Wound care was consulted as well. His IV antibiotics have been transitioned to Keflex at the time of discharg e. His erythema and edema in the left lower extremity is receding. The patient needs to continue h is compression stockings as before. Home health with wound care will be arranged via case managemen t consultation. The patient has a prior history of Clostridium difficile with antibiotic use and hi s IV antibiotics were rapidly tapered to oral Keflex at the time of discharge. One sample of stool for C. diff is negative at the time of discharge. Please see a [id number] documentation on [facility] for the day of discharge.
== END 2017-09-09 18:45 | DRG 872 ==
LOC: ERS 10:06 → T4-A 13:50
PROVIDERS: ADMIT Internal Medicine; ATTEND Internal Medicine
DX: A41.9 Sepsis, unspecified organism (principal); L89.312 Pressure ulcer of right buttock, stage 2; I11.0 Hypertensive heart disease with heart failure; L89.322 Pressure ulcer of left buttock, stage 2; L03.116 Cellulitis of left lower limb; I50.32 Chronic diastolic (congestive) heart failure; N30.00 Acute cystitis without hematuria; C88.0 Waldenstrom macroglobulinemia; B96.20 Unspecified Escherichia coli [E. coli] as the cause of diseases classified elsewhere; L97.929 Non-pressure chronic ulcer of unspecified part of left lower leg with unspecified severity; Z95.0 Presence of cardiac pacemaker; Z96.651 Presence of right artificial knee joint; N40.0 Benign prostatic hyperplasia without lower urinary tract symptoms; E78.5 Hyperlipidemia, unspecified
CPT/HCPCS: 36415; 71010; 80053; 80069; 80202; 81003; 81015; 82553; 83605; 83690; 83880; 84484; 85025; 85610; 85652; 85730; 86140; 87040; 87077; 87086; 87186; 87324; 87449; 93005; 93970; 96365; 96368; A4216; J1650; J2543; J3370; J7050

== ENCOUNTER 2018-02-20 07:53 | Emergency (ER) | payer MEDICARE, OTHER ==
[2018-02-20] MEDS ORDERED: Adacel (T-DAP) 0.5 ML VIAL ONE (09:04)
--- NOTE | 2018-02-20 09:17 | CT ---
CT BRAIN: Date: 02/20/18 PROVIDED CLINICAL HISTORY: Head pain status post fall. FINDINGS: Comparison made with the study dated 08/19/15. Ventricular system appears normal in size and morphology. There is no evidence for intracranial hemor rhage or mass effect. Chronic microvascular white matter ischemic changes are seen. Right frontoparie rosaline scalp swelling is seen near the vertex without evidence for skull fracture. IMPRESSION: No evidence for intracranial hemorrhage or skull fracture. POS: [facility]
--- NOTE | 2018-02-20 09:24 | CT ---
CT CERVICAL SPINE: Date: 02/20/18 PROVIDED CLINICAL HISTORY: Neck pain status post fall. FINDINGS: Comparison made with the study dated 08/19/15. There is no evidence for fracture or traumatic subluxation. Advanced multilevel degenerative changes are seen. No prevertebral soft tissue swelling apparent. The visualized lung apices appear clear. IMPRESSION: No evidence for fracture or traumatic subluxation. POS: [facility]
--- NOTE | 2018-02-20 09:26 | RAD ---
RIGHT FOREARM 2 VIEWS: Date: 02/20/18 PROVIDED CLINICAL HISTORY: Pain status post fall. 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 There is bone deformity of the right radius, as well as conspicuous negative ulnar variance. There is no evidence for fracture o r other acute osseous abnormality. IMPRESSION: 1. Findings compatible with multiple hereditary exostoses. 2. No evidence for an acute osseous abnormality. If there is persistent clinical concern, conservati ve management and follow-up imaging are advised. POS: [facility]
[2018-02-20] MEDS ORDERED: Lidocaine 1% w/Epinephrine 1:100K 20 ML VIAL ONE (09:37)
== END 2018-02-20 10:29 | disposition home or self-care (01) ==
LOC: ERS 07:53
DX: S01.01XA Laceration without foreign body of scalp, initial encounter (principal); N40.0 Benign prostatic hyperplasia without lower urinary tract symptoms; I50.9 Heart failure, unspecified; I11.0 Hypertensive heart disease with heart failure; F41.9 Anxiety disorder, unspecified; Z87.891 Personal history of nicotine dependence; Z79.899 Other long term (current) drug therapy; Z79.82 Long term (current) use of aspirin; W19.XXXA Unspecified fall, initial encounter
CPT/HCPCS: 12002; 70450; 72125; 90471; 90715; J2001

== ENCOUNTER 2018-02-26 19:33 | Inpatient (IN) | payer MEDICARE, OTHER ==
--- NOTE | 2018-02-26 20:20 | RAD ---
AP VIEW OF THE CHEST 02/26/18 INDICATION: Nausea, vomiting and lightheaded. COMPARISON: 09/05/17. FINDINGS: There is stable cardiomegaly. There is stable chronic lung changes. Dual lead pacemaker is unchanged in position. No focal consolidation, pleural effusion, or pneumothorax is evident. Chronic osseous ch anges are similar to the comparison study. IMPRESSION: No acute cardiopulmonary abnormality. POS: [facility]
[2018-02-26 20:34] LABS: Hemoglobin 13.4 g/dL (14.0-18.0); Mean Corpuscular HGB CONC 32.6 g/dL (32.0-36.0); Mean Corpuscular Hemoglobin 27.8 pg (27.0-31.0); Mean Corpuscular Volume 85.2 fl (80.0-94.0); Mean Platelet Volume 9.2 fL (7.4-10.4); Platelet Count 163 thou/uL (130-400); RBC Distribution Width 14.1 % (11.5-14.5); Red Blood Cell (RBC) Count 4.84 mill/uL (4.70-6.10); White Blood Cell (WBC) Count 21.5 thou/uL (4.8-10.8)
[2018-02-26 20:38] LABS: PTT 23.4 SEC (22.9-36.1); Prothrombin Time 13.8 SEC (12.0-14.7)
[2018-02-26 20:47] LABS: ALT (SGPT) 14 U/L (8-55); AST (SGOT) 18 U/L (5-34); Albumin 3.9 g/dL (3.4-4.8); Alkaline Phosphatase 103 U/L (40-150); Anion Gap 14 mmol/L (10-20); BUN (Urea Nitrogen) 37 mg/dL (8.4-25.7); Bilirubin, Total 0.6 mg/dL (0.2-1.2); Calc. Creatinine Clearance 0 mL/min (70-130); Carbon Dioxide 25 mmol/L (23-31); Chloride 105 mmol/L (98-107); Estimated GFR-MDRD 58; Globulin 2.3 g/dL (2.4-3.5); Glucose 141 mg/dL (83-110); Lipase 29 U/L (8-78); Magnesium 2.1 mg/dL (1.6-2.6); Potassium 4.7 mmol/L (3.5-5.1); Protein, Total 6.2 g/dL (5.8-8.1); Sodium 139 mmol/L (136-145)
[2018-02-26 20:48] LABS: Bilirubin Negative (Negative); Blood, Urine Negative (Negative); Clarity CLOUDY (Clear); Glucose, Urine (Dipstick) Negative (Negative); Leukocyte Moderate (Negative); Nitrite Negative (Negative); Protein, Urine (Dipstick) Negative (Neg-Trace); Specific Gravity, Urine 1.023 (1.002-1.036); Urobilinogen 0.2 mg/dL (0.2-1.0)
[2018-02-26 20:50] LABS: Bacteria/HPF None Seen HPF (None Seen); RBC/HPF 0-3 HPF (0-3)
[2018-02-26] MEDS ORDERED: Ondansetron HCl/PF 4 MG/2 ML Vial ONE (20:50)
[2018-02-26 20:51] LABS: CKMB 5.3 ng/mL (0-6.6); Troponin I Less than 0.010 ng/mL (< 0.028)
[2018-02-26 20:51] LABS: Pathc Cast-AUWi Flag 3.05 (0-2.49)
[2018-02-26 20:58] LABS: Hyaline Casts/LPF 7-10 HYALINE CAST LPF (0-3 Hyaline)
[2018-02-26 21:02] LABS: Band 8 % (5-11); Lymphocytes 2 % (21-51); MDiff Complete? YES; Monocytes 4 % (0-10); Neutrophil 86 % (42-75)
[2018-02-27 00:05] LABS: Troponin I 0.015 ng/mL (< 0.028)
[2018-02-27] MEDS ORDERED: Acetaminophen 325 MG TAB PO PRN (00:17)
[2018-02-27 00:39] VITALS: BMI 32.1
[2018-02-27] MEDS ORDERED: Furosemide 20 MG/2 ML VIAL SLOW IVP SCH (01:30)
[2018-02-27] MEDS ORDERED: Ondansetron HCl/PF 4 MG/2 ML Vial IVP PRN ×2 (03:00→03:06)
[2018-02-27] MEDS ORDERED: Ondansetron ODT 4 MG TAB SL PRN (03:00)
[2018-02-27] MEDS ORDERED: Acetaminophen 500 MG TAB PO PRN (03:06)
[2018-02-27] MEDS ORDERED: Ondansetron ODT 4 MG TAB PO PRN (03:06)
[2018-02-27] MEDS ORDERED: guaiFENesin ER 600 MG TAB PO PRN (03:06)
[2018-02-27] MEDS ORDERED: Azelastine 137 MCG/Spray 30 ML NS PRN (03:06)
[2018-02-27] MEDS ORDERED: hydrALAZINE 20 MG/ML VIAL SLOW IVP PRN (03:06)
[2018-02-27] MEDS ORDERED: Furosemide 20 MG TAB PO PRN (03:06)
[2018-02-27] MEDS ORDERED: cloNIDine 0.1 MG TAB PO PRN (03:06)
[2018-02-27] MEDS: Sodium Chloride 0.9% 1,000 ML IV SCH ×2 (04:18→23:04)
--- NOTE | 2018-02-27 04:20 | HP ---
DATE OF ADMISSION: 02/27/2018 PRIMARY CARE PROVIDER: Dr. John Castillo. CHIEF COMPLAINT: Nausea and vomiting. HISTORY OF PRESENT ILLNESS: This is an 87-year-old male, who presents from [facility] after apparently developing nausea and vomiting after eating dinner in the early evening hours 02/26/2018. The patient apparently had 3-4 episodes of nausea with emesis. The patien t had associated weakness, but no chest pain, shortness of breath, or unilateral weakness. The patie nt with notable history of recent fall without loss of consciousness, undergoing CT imaging of the ce rvical spine and brain showing no acute process. The patient apparently ambulates with the use of a rolling walker, but according to family members has not been as active over the last week. The patie nt denies any recent travel history, exposure or family members with similar symptoms. No specific h istory of recent change to his chronic medication regimen. In the emergency room, the patient underw ent general evaluation with urinalysis concerning for infectious process receiving Rocephin 1 gram x1 dose. The patient also received Zofran and normal saline x1 liter. PAST MEDICAL HISTORY: 1. Waldenstrom's macroglobulinemia. 2. Hypertension. 3. Benign prostatic hypertrophy. 4. Diastolic dysfunction grade 1/3 with preserved ejection fraction of 60% to 65%. 5. Anxiety disorder. 6. Degenerative joint disease. 7. Chronic lower extremity edema. 8. Chronic venous stasis. 9. Obesity. 10. Obstructive sleep apnea with nocturnal CPAP. 11. Chronic kidney disease, stage 3. PAST SURGICAL HISTORY: 1. Status post hernia repair. 2. Status post right total knee arthroplasty. 3. Status post open reduction and internal fixation of femur fracture. 4. Status post prostatectomy. 5. Status post tonsillectomy. 6. Status post pacemaker placement. 7. Status post multiple colon surgeries. CURRENT MEDICATIONS: 1. Aspirin 325 mg 1 tab p.o. daily. 2. Azelastine 137 mcg 1 spray in each naris daily p.r.n. 3. Citalopram 40 mg p.o. daily. 4. Lasix 20 mg p.o. q.a.m. 5. Gabapentin 600 mg p.o. at bedtime. 6. Mucinex ER 600 mg p.o. b.i.d. 7. Imbruvica 420 mg p.o. daily. 8. Lisinopril 20 mg 1 tab p.o. daily. 9. Meloxicam 7.5 mg p.o. daily. 10. Omeprazole 20 mg p.o. daily. 11. Spironolactone 12.5 mg p.o. daily. ALLERGIES: No known drug allergies. FAMILY HISTORY: No inheritable diseases per patient report. SOCIAL HISTORY: The patient resides at [facility]. 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 Former tobacco use. Ambulates with use of a rolling walker with recent mec hanical fall approximately a week prior to this evaluation. REVIEW OF SYSTEMS: The following complete review of systems was negative, unless otherwise mentioned in the HPI or below: Constitutional: Weight loss or gain, ability to conduct usual activities. Sk in: Rash, itching. Eyes: Double vision, pain. ENT/Mouth: Nose bleeding, neck stiffness, pain, te nderness. Cardiovascular: Palpitations, dyspnea on exertion, orthopnea. Respiratory: Shortness of breath, wheezing, cough, hemoptysis, fever or night sweats. Gastrointestinal: Poor appetite, abdom inal pain, heartburn, nausea, vomiting, constipation, or diarrhea. Genitourinary: Urgency, frequenc y, dysuria, nocturia. Musculoskeletal: Pain, swelling. Neurologic/Psychiatric: Anxiety, depressio n. Allergy/Immunologic: Skin rash, bleeding tendency. Otherwise negative except as stated per HPI. PHYSICAL EXAMINATION: VITAL SIGNS: Currently, blood pressure 147/60, pulse 84, respiratory rate ranged between 16-28, O2 s aturation 97% on 4 liters per nasal cannula with continuous positive airway pressure. GENERAL APPEARANCE: This is an 87-year-old male, alert and responsive, in no acute distres s. HEENT: Pupils are equal, round, and reactive to light and accommodation. Extraocular muscles are in tact. No scleral icterus, no conjunctival injection. Nares patent. CPAP facemask in place. Oral c avity clear. NECK: Supple, no cervical adenopathy, no thyromegaly, no carotid bruits, no JVD appreciated. Cervic al spine with full active and passive range of motion. CHEST: Lungs are clear to auscultation bilaterally. CARDIOVASCULAR: S1, S2 with distant heart sounds. ABDOMEN: Obese, soft, nontender, nondistended. Bowel sounds are positive in all four quadrants. Th ere is no hepatosplenomegaly, no abdominal bruits, no rebound or guarding appreciated. EXTREMITIES: Pitting edema to the knees bilaterally. Chronic changes in lower extremities noted. D ystrophic nails noted. Pulses palpable distally at the dorsalis pedis, posterior tibial, and poplite al arteries bilaterally. Capillary refill less than 2 seconds. NEUROLOGIC: Cranial nerves II-XII are grossly intact. No focal or lateralizing signs appreciated. PERTINENT LABORATORY AND X-RAY FINDINGS: Sodium 139, potassium 4.7, chloride 105, CO2 of 25, BUN 37, creatinine 1.19, estimated GFR 58, glucose 141. Lactic acid level 1.7, calcium 9.0, magnesium 2.1. LFTs within normal limits. Troponin I negative x2. BNP 15.6, albumin 3.9, lipase 29. CBC showed a white blood cell count of 21.5, hemoglobin 13.4, hematocrit 41.2, platelet count 163 with 86% neutro philia. PT 13.8, INR 1.0, PTT 23.4. Urinalysis showed trace ketones, moderate leukocyte esterase wi th 7-10 wbc's per high powered field. Portable chest x-ray dated 02/26/2018 showed no acute cardiopu lmonary process. Pacemaker device in place. ASSESSMENT AND PLAN: 1. Nausea and vomiting. The patient will be admitted to the medical floor. Suspect secondary to #2 . We will continue Zofran 4 mg IV q.6 hours p.r.n. Continue intravenous normal saline at 50 mL per hour. Clear liquids advancing as tolerated. 2. Urinary tract infection. Suspected given patient's urinalysis. Await final urine culture result s. Continue Rocephin 1 gram IV q.24 hours. 3. Chronic kidney disease, stage 3. We will continue low volume intravenous normal saline at 50 mL per hour. Avoid nephrotoxic agents and contrast media. Repeat creatinine in the a.m. 4. Leukocytosis with neutrophilia. Continue treatment as outlined above. Repeat CBC in the a.m. 5. Chronic lower extremity edema. Resume home Lasix 20 mg p.o. daily. 6. Obstructive sleep apnea with nocturnal CPAP. Continue CPAP nocturnally as clinically tolerated. 7. Prophylaxis. Sequential compression devices while in bed. Pepcid 20 mg p.o. b.i.d. PT evaluati on for functional assessment in the a.m. 8. Code status is FULL. Surrogate medical decision maker is patient's spouse.
[2018-02-27 05:47] LABS: Anion Gap 14 mmol/L (10-20); BUN (Urea Nitrogen) 42 mg/dL (8.4-25.7); Calc. Creatinine Clearance 60 mL/min (70-130); Calcium 8.3 mg/dL (7.8-10.44); Carbon Dioxide 25 mmol/L (23-31); Chloride 105 mmol/L (98-107); Estimated GFR-MDRD 58; Glucose 160 mg/dL (83-110); Potassium 4.2 mmol/L (3.5-5.1); Sodium 140 mmol/L (136-145)
[2018-02-27 05:51] LABS: Band 18 % (5-11); Hemoglobin 12.5 g/dL (14.0-18.0); Lymphocytes 9 % (21-51); MDiff Complete? YES; Mean Corpuscular HGB CONC 32.1 g/dL (32.0-36.0); Mean Corpuscular Hemoglobin 27.9 pg (27.0-31.0); Mean Platelet Volume 10.2 fL (7.4-10.4); Monocytes 15 % (0-10); Neutrophil 58 % (42-75); Platelet Count 142 thou/uL (130-400); RBC Distribution Width 14.1 % (11.5-14.5); Red Blood Cell (RBC) Count 4.49 mill/uL (4.70-6.10); White Blood Cell (WBC) Count 23.3 thou/uL (4.8-10.8)
[2018-02-27] MEDS ORDERED: Ibrutinib [Imbruvica] 420 MG PO SCH (09:00)
[2018-02-27] MEDS ORDERED: Spironolactone 25 MG TAB PO SCH (09:00)
[2018-02-27] MEDS ORDERED: Lisinopril 20 MG TAB PO SCH (09:00)
[2018-02-27] MEDS: Famotidine 20 MG TAB PO SCH (09:40)
[2018-02-27] MEDS: Aspirin 325 MG TAB PO SCH (09:40)
[2018-02-27] MEDS: Citalopram 20 MG TAB PO SCH (09:40)
[2018-02-27] MEDS: Meloxicam 7.5 MG TAB PO SCH (09:41)
--- NOTE | 2018-02-27 17:16 | PDOC.EVN ---
Event Note - Event Note Event Note: Chart reviewed. Pt seen. Discussed with family re: UTI, will follow. Nausea and vomiting have resolved.
[2018-02-27] MEDS: Gabapentin 300 MG CAP PO SCH (20:24)
[2018-02-27] MEDS ORDERED: cefTRIAXone\\ROCEPHIN 1 GM in Syringe 10 ML IVPB SCH (23:00)
[2018-02-28] MEDS ORDERED: Acetaminophen 500 MG TAB PO PRN (08:29)
[2018-02-28] MEDS ORDERED: Eucerin (Mineral Oil/Petrolatum,White) 30 gm Jar TOP PRN (08:30)
[2018-02-28] MEDS ORDERED: Sodium Chloride 0.65% Nasal 44 ML BOT EA NARE PRN (08:30)
[2018-02-28] MEDS ORDERED: Chloraseptic Spray 180 ml Bottle PO PRN (08:30)
[2018-02-28] MEDS ORDERED: Mag-Al 1200 mg/1200 mg/30 ML UDCUP PO PRN (08:30)
[2018-02-28] MEDS ORDERED: Diabetic Tussin 200 MG/10 ML UDCUP PO PRN (08:30)
[2018-02-28] MEDS ORDERED: Artificial Tears 18 DROP/0.9 ML EA EYE PRN (08:30)
[2018-02-28] MEDS ORDERED: Loratadine 10 MG TAB PO PRN (08:30)
[2018-02-28] MEDS ORDERED: Saccharomyces boulardii 250 MG CAP PO SCH (09:00)
[2018-02-28] MEDS ORDERED: Vancomycin HCl 25 MG/ML Oral PO SCH ×2 (09:00→17:00)
[2018-02-28] MEDS: Famotidine 20 MG TAB PO SCH (09:06)
[2018-02-28] MEDS: Aspirin 325 MG TAB PO SCH (09:06)
[2018-02-28] MEDS: Saccharomyces boulardii 250 MG CAP PO SCH ×2 (09:06→22:07)
[2018-02-28] MEDS: Citalopram 20 MG TAB PO SCH (09:06)
[2018-02-28] MEDS: Meloxicam 7.5 MG TAB PO SCH (09:07)
--- NOTE | 2018-02-28 12:25 | PDOC.PN ---
- Subjective Encounter Start Date: 02/28/18 Encounter Start Time: 09:00 -: old records requested/rev Patient seen and examined. No new complaints. No overnight events - Objective Resuscitation Status: Resuscitation Status FULL:Full Resuscitation MAR Reviewed: Yes Vital Signs & Weight: Vital Signs (12 hours) Temp Pulse Resp BP Pulse Ox 02/28/18 08:00 98.0 F 74 20 124/61 95 02/28/18 07:45 97.6 F 60 18 02/28/18 05:00 97.6 F 60 18 95/53 L 95 I&O: 02/27/18 02/28/18 03/01/18 06:59 06:59 06:59 Intake Total 74.4 1786 Output Total 150 250 Balance -75.6 1536 Result Diagrams: 02/27/18 05:05 02/27/18 05:05 Phys Exam - Physical Examination Constitutional: NAD HEENT: PERRLA, moist MMs, sclera anicteric Neck: no JVD, supple Respiratory: no wheezing, no rales, no rhonchi Cardiovascular: RRR, no significant murmur, no rub Gastrointestinal: soft, non-tender, no distention, positive bowel sounds Musculoskeletal: no edema, pulses present Neurological: non-focal, normal sensation, moves all 4 limbs Psychiatric: normal affect, A&O x 3 Skin: no rash, normal turgor Dx/Plan (1) C. difficile colitis Status: Acute (2) Hypotension Status: Acute (3) Nausea & vomiting Code(s): R11.2 - NAUSEA WITH VOMITING, UNSPECIFIED Status: Acute (4) Sepsis Code(s): A41.9 - SEPSIS, UNSPECIFIED ORGANISM Status: Acute (5) Anxiety and depression Code(s): F41.9 - ANXIETY DISORDER, UNSPECIFIED; F32.9 - MAJOR DEPRESSIVE DISORDER, SINGLE EPISODE, UNSPECIFIED Status: Chronic (6) BPH (benign prostatic hyperplasia) Code(s): N40.0 - BENIGN PROSTATIC HYPERPLASIA WITHOUT LOWER URINRY TRACT SYMP Status: Chronic Qualifiers: (7) CKD (chronic kidney disease) stage 3, GFR 30-59 ml/min Status: Chronic (8) Chronic diastolic (congestive) heart failure Code(s): I50.32 - CHRONIC DIASTOLIC (CONGESTIVE) HEART FAILURE Status: Chronic (9) Dyslipidemia Code(s): E78.5 - HYPERLIPIDEMIA, UNSPECIFIED Status: Chronic (10) Hypertension Code(s): I10 - ESSENTIAL (PRIMARY) HYPERTENSION Status: Chronic Qualifiers: (11) AKIL on CPAP Code(s): G47.33 - OBSTRUCTIVE SLEEP APNEA (ADULT) (PEDIATRIC); Z99.89 - DEPENDENCE ON OTHER ENABLING MACHINES AND DEVICES Status: Chronic (12) Obesity (BMI 30.0-34.9) Code(s): E66.9 - OBESITY, UNSPECIFIED Status: Chronic (13) Pacemaker Code(s): Z95.0 - PRESENCE OF CARDIAC PACEMAKER Status: Chronic (14) Waldenstrom macroglobulinemia Code(s): C88.0 - WALDENSTROM MACROGLOBULINEMIA Status: Chronic - Plan cont current plan of care, plan discussed w/ family, continue antibiotics * i spoke with daughter and she reports that oral vancomycin and flagyl has not been working for c-diff and asking for dificid therapy and request ID consult * medication reviewed as below * symptomatic treatment. Review of Systems - Review of Systems Eyes: negative: Pain, Vision Change, Conjunctivae Inflammation, Eyelid Inflammation, Redness, Other ENT: negative: Ear Pain, Ear Discharge, Nose Pain, Nose Discharge, Nose Congestion, Mouth Pain, Mouth Swelling, Throat Pain, Throat Swelling, Other Respiratory: negative: Cough, Dry, Shortness of Breath, Hemoptysis, SOB with Excertion, Pleuritic Pain, Sputum, Wheezing Cardiovascular: negative: chest pain, palpitations, orthopnea, paroxysmal nocturnal dyspnea, edema, light headedness, other Gastrointestinal: negative: Nausea, Vomiting, Abdominal Pain, Diarrhea, Constipation, Melena, Hematochezia, Other Genitourinary: negative: Dysuria, Frequency, Incontinence, Hematuria, Retention , Other Musculoskeletal: negative: Neck Pain, Shoulder Pain, Arm Pain, Back Pain, Hand Pain, Leg Pain, Foot Pain, Other Skin: negative: Rash, Lesions, [place], Bruising, Other - Medications/Allergies Allergies/Adverse Reactions: Allergies Allergy/AdvReac Type Severity Reaction Status Date / Time No Known Allergies Allergy Verified 03/09/17 23:08 Medications: Current Medications Acetaminophen (Tylenol) 500 mg PO Q6H PRN PRN Reason: Headache/Fever or Mild Pain Al Hydroxide/Mg Hydroxide (Maalox) 15 ml PO Q4H PRN PRN Reason: Heartburn or Indigestion Artificial Tears (Tears Naturale) 0 drop EA EYE PRN PRN PRN Reason: Dry Eyes Aspirin (Aspirin) 325 mg PO DAILY [facility] Last Admin: 02/28/18 09:06 Dose: 325 mg Azelastine HCl (Azelastine) 0 ml NS DAILY PRN PRN Reason: COUGH/CONGESTION Citalopram Hydrobromide (Celexa) 40 mg PO DAILY [facility] Last Admin: 02/28/18 09:06 Dose: 40 mg Clonidine (Catapres) 0.1 mg PO Q4H PRN PRN Reason: Systolic BP > 180 Famotidine (Pepcid) 20 mg PO DAILY [facility] Last Admin: 02/28/18 09:06 Dose: 20 mg Gabapentin (Neurontin) 600 mg PO HS [facility] Last Admin: 02/27/18 20:24 Dose: 600 mg Guaifenesin (Mucinex) 600 mg PO BID PRN PRN Reason: Cough Guaifenesin (Robitussin Sf) 200 mg PO Q4H PRN PRN Reason: Cough Hydralazine HCl (Apresoline) 10 mg SLOW IVP Q4H PRN PRN Reason: Systolic BP > 180 Sodium Chloride (Normal Saline 0.9%) 1,000 mls @ 50 mls/hr IV .Q20H [facility] Last Admin: 02/27/18 23:04 Dose: 1,000 mls Loratadine (Claritin) 10 mg PO DAILYPRN PRN PRN Reason: Sinus Symptoms Meloxicam (Mobic) 7.5 mg PO DAILY [facility] Last Admin: 02/28/18 09:07 Dose: 7.5 mg Mineral Oil/White Petrolatum (Eucerin Cream) 0 gm TOP BIDPRN PRN PRN Reason: Dry Skin Dificid 200 Mg Tab 0 each PO BID [facility] Stop: 03/10/18 21:01 Ondansetron HCl (Zofran Odt) 4 mg PO Q6H PRN PRN Reason: Nausea/Vomiting Ondansetron HCl (Zofran) 4 mg IVP Q6H PRN PRN Reason: Nausea/Vomiting Last Admin: 02/27/18 04:52 Dose: 4 mg Phenol (Chloraseptic [place] 180 Ml Bot) 0 ml PO PRN PRN PRN Reason: Sore Throat Saccharomyces Boulardii (Florastor) 250 mg PO BID [facility] Last Admin: 02/28/18 09:06 Dose: 250 mg Sodium Chloride (Flush - Normal Saline) 10 ml IVF Q12HR [facility] Last Admin: 02/28/18 09:07 Dose: Not Given Sodium Chloride (Flush - Normal Saline) 10 ml IVF PRN PRN PRN Reason: Saline Flush Sodium Chloride ([place] Nasal [place] 0.65%) 0 ml EA NARE QIDPRN PRN PRN Reason: Nasal Congestion
[2018-02-28] MEDS ORDERED: metroNIDAZOLE 500 MG in Premix Bag 1 BAG IVPB SCH (14:00)
--- NOTE | 2018-02-28 18:29 | CON ---
DATE OF CONSULTATION: 02/28/2018 REASON FOR CONSULTATION: Clostridium difficile recurrence. HISTORY OF PRESENT ILLNESS: An 87-year-old patient whom I had seen in the past for management of cellulitis of left lower extremity. Patient had a previous history of C. diff colitis in the past and prostate cancer. He was treated with broad spectrum coverage. Duplex ultrasound showed no evidence of deep vein thrombosis and he improved with the usual management. On discharge, he was given Pen-Vee K for suppressive therapy and this time, he presents with nausea and vomiting and abdominal distention. No headaches, visual symptoms, sore throat, aphasia, dysphagia, no dyspnea or chest pain, no cough. Denies abdominal pain, denies diarrhea. He was given Rocephin in the emergency room and admitted. PAST MEDICAL HISTORY: Waldenstrom macroglobulinemia, hypertension, BPH, prior C. diff colitis, prior abscess cellulitis of lower extremity, lymphedema, AKIL, and renal insufficiency stage 3. PAST SURGICAL HISTORY: Hernia repair, right TKR, femur fracture, prostatectomy , tonsillectomy, pacemaker placement. MEDICATIONS: Aspirin, azelastine, citalopram, Lasix, Neurontin, Mucinex, Imbruvica for management of Waldenstrom macroglobulinemia, lisinopril, meloxicam , omeprazole, and spironolactone. ALLERGIES: None. FAMILY HISTORY: Noncontributory. SOCIAL HISTORY: Lives at [facility]. Former smoker. PHYSICAL EXAMINATION: VITAL SIGNS: T-max 98.3, blood pressure 130/53, pulse 64, respirations 18-20, O2 sat 95%. SKIN: With area of erythema in the back of his upper thigh region at the interface with the gluteal region, a little bit of erosions there and he has areas of laceration from previous fall in the left upper extremity. No lymphadenopathy. HEENT: Noncontributory. NECK: Supple. LUNGS: Symmetrically breath sounds. HEART: Showed S1, S2, regular rate. No S3, S4. Pacemaker pocket site appears normal. ABDOMEN: Soft, slightly distended. Bowel sounds are increased. No tenderness. No bladder distention. No going contractility lymphedema of lower extremities, but no inflammatory changes noted. Pulses 1+ dorsalis pedis popliteals are bounding and 2+. Cap refill normal. Moves all extremities equally, but is diffusely weak. NEUROLOGIC: Cognitive function appears to be intact, a bit sluggish in replies. LABORATORY DATA: White cell count 21,000-23,000, hemoglobin 12, platelets 142 with 18% bands. Chemistry with a creatinine 1.19 and 1.19. Liver profile normal. Albumin 3.9. Urinalysis with 7-10 wbcs and positive urine cultures. C. difficile was positive for PCR. Imaging study: No imaging studies. Chest x -ray from the end of January with no acute cardiopulmonary abnormality. ASSESSMENT: 1. Waldenstrom macroglobulinemia. 2. Prior episode of Clostridium difficile. 3. Gastrointestinal symptoms particularly vomiting, abdominal distention, although no history of diarrhea is present, he does have increased bowel sounds. 4. Neutrophilia with left shift. DISCUSSION: The urinalysis probably reflects asymptomatic bacteriuria. I would not treat this finding and would concentrate on management of Clostridium difficile with oral vancomycin or Fidaxomicin. If Vancomycin is chosen, she would need a tappering phase. With a third recurrence, fecal transplant would be indicated. [facility]
[2018-02-28] MEDS: Gabapentin 300 MG CAP PO SCH (22:07)
[2018-02-28] MEDS: DIFICID 200 MG PO SCH (22:08)
[2018-03-01] MEDS: Aspirin 325 MG TAB PO SCH (08:06)
[2018-03-01] MEDS: Meloxicam 7.5 MG TAB PO SCH (08:06)
[2018-03-01] MEDS: Famotidine 20 MG TAB PO SCH (08:07)
[2018-03-01] MEDS: Saccharomyces boulardii 250 MG CAP PO SCH ×2 (08:07→21:05)
[2018-03-01] MEDS: Citalopram 20 MG TAB PO SCH (08:07)
--- NOTE | 2018-03-01 11:09 | PDOC.PN ---
- Subjective Encounter Start Date: 03/01/18 Encounter Start Time: 09:30 Patient seen and examined. No new complaints. No overnight events - Objective Resuscitation Status: Resuscitation Status FULL:Full Resuscitation MAR Reviewed: Yes Vital Signs & Weight: Vital Signs (12 hours) Temp Pulse Resp BP Pulse Ox 03/01/18 08:00 98.0 F 71 18 93 L 03/01/18 07:39 98.0 F 71 18 146/64 H 93 L 03/01/18 06:37 95 03/01/18 00:00 98.3 F 64 20 148/54 H 93 L I&O: 02/28/18 03/01/18 03/02/18 06:59 06:59 06:59 Intake Total 1786 1020 Output Total 250 1400 Balance 1536 -380 Result Diagrams: 02/27/18 05:05 02/27/18 05:05 Phys Exam - Physical Examination Constitutional: NAD HEENT: PERRLA, moist MMs, sclera anicteric Neck: no JVD, supple Respiratory: no wheezing, no rales, no rhonchi Cardiovascular: RRR, no significant murmur, no rub Gastrointestinal: soft, non-tender, no distention, positive bowel sounds Musculoskeletal: no edema, pulses present Neurological: non-focal, normal sensation Lymphatic: no nodes Psychiatric: normal affect Skin: no rash, normal turgor Dx/Plan (1) C. difficile colitis Status: Acute (2) Hypotension Status: Acute (3) Nausea & vomiting Code(s): R11.2 - NAUSEA WITH VOMITING, UNSPECIFIED Status: Acute (4) Sepsis Code(s): A41.9 - SEPSIS, UNSPECIFIED ORGANISM Status: Acute (5) Anxiety and depression Code(s): F41.9 - ANXIETY DISORDER, UNSPECIFIED; F32.9 - MAJOR DEPRESSIVE DISORDER, SINGLE EPISODE, UNSPECIFIED Status: Chronic (6) BPH (benign prostatic hyperplasia) Code(s): N40.0 - BENIGN PROSTATIC HYPERPLASIA WITHOUT LOWER URINRY TRACT SYMP Status: Chronic Qualifiers: (7) CKD (chronic kidney disease) stage 3, GFR 30-59 ml/min Status: Chronic (8) Chronic diastolic (congestive) heart failure Code(s): I50.32 - CHRONIC DIASTOLIC (CONGESTIVE) HEART FAILURE Status: Chronic (9) Dyslipidemia Code(s): E78.5 - HYPERLIPIDEMIA, UNSPECIFIED Status: Chronic (10) Hypertension Code(s): I10 - ESSENTIAL (PRIMARY) HYPERTENSION Status: Chronic Qualifiers: (11) AKIL on CPAP Code(s): G47.33 - OBSTRUCTIVE SLEEP APNEA (ADULT) (PEDIATRIC); Z99.89 - DEPENDENCE ON OTHER ENABLING MACHINES AND DEVICES Status: Chronic (12) Obesity (BMI 30.0-34.9) Code(s): E66.9 - OBESITY, UNSPECIFIED Status: Chronic (13) Pacemaker Code(s): Z95.0 - PRESENCE OF CARDIAC PACEMAKER Status: Chronic (14) Waldenstrom macroglobulinemia Code(s): C88.0 - WALDENSTROM MACROGLOBULINEMIA Status: Chronic - Plan cont current plan of care, plan discussed w/ family, continue antibiotics, transition social worker * continue dificid * ID recommendation noted * will repeat labs tomorrow * medication reviewed as below * symptomatic treatment * continue home medication * continue GI bland diet Review of Systems - Review of Systems Eyes: negative: Pain, Vision Change, Conjunctivae Inflammation, Eyelid Inflammation, Redness, Other ENT: negative: Ear Pain, Ear Discharge, Nose Pain, Nose Discharge, Nose Congestion, Mouth Pain, Mouth Swelling, Throat Pain, Throat Swelling, Other Respiratory: negative: Cough, Dry, Shortness of Breath, Hemoptysis, SOB with Excertion, Pleuritic Pain, Sputum, Wheezing Cardiovascular: negative: chest pain, palpitations, orthopnea, paroxysmal nocturnal dyspnea, edema, light headedness, other Gastrointestinal: negative: Nausea, Vomiting, Abdominal Pain, Diarrhea, Constipation, Melena, Hematochezia, Other Genitourinary: negative: Dysuria, Frequency, Incontinence, Hematuria, Retention , Other Musculoskeletal: negative: Neck Pain, Shoulder Pain, Arm Pain, Back Pain, Hand Pain, Leg Pain, Foot Pain, Other Skin: negative: Rash, Lesions, [place], Bruising, Other - Medications/Allergies Allergies/Adverse Reactions: Allergies Allergy/AdvReac Type Severity Reaction Status Date / Time No Known Allergies Allergy Verified 03/09/17 23:08 Medications: Current Medications Acetaminophen (Tylenol) 500 mg PO Q6H PRN PRN Reason: Headache/Fever or Mild Pain Al Hydroxide/Mg Hydroxide (Maalox) 15 ml PO Q4H PRN PRN Reason: Heartburn or Indigestion Artificial Tears (Tears Naturale) 0 drop EA EYE PRN PRN PRN Reason: Dry Eyes Aspirin (Aspirin) 325 mg PO DAILY [facility] Last Admin: 03/01/18 08:06 Dose: 325 mg Azelastine HCl (Azelastine) 0 ml NS DAILY PRN PRN Reason: COUGH/CONGESTION Citalopram Hydrobromide (Celexa) 40 mg PO DAILY [facility] Last Admin: 03/01/18 08:07 Dose: 40 mg Clonidine (Catapres) 0.1 mg PO Q4H PRN PRN Reason: Systolic BP > 180 Famotidine (Pepcid) 20 mg PO DAILY [facility] Last Admin: 03/01/18 08:07 Dose: 20 mg Gabapentin (Neurontin) 600 mg PO HS [facility] Last Admin: 02/28/18 22:07 Dose: 600 mg Guaifenesin (Mucinex) 600 mg PO BID PRN PRN Reason: Cough Guaifenesin (Robitussin Sf) 200 mg PO Q4H PRN PRN Reason: Cough Hydralazine HCl (Apresoline) 10 mg SLOW IVP Q4H PRN PRN Reason: Systolic BP > 180 Loratadine (Claritin) 10 mg PO DAILYPRN PRN PRN Reason: Sinus Symptoms Meloxicam (Mobic) 7.5 mg PO DAILY [facility] Last Admin: 03/01/18 08:06 Dose: 7.5 mg Mineral Oil/White Petrolatum (Eucerin Cream) 0 gm TOP BIDPRN PRN PRN Reason: Dry Skin Dificid 200 Mg Tab 0 each PO BID [facility] Stop: 03/10/18 21:01 Last Admin: 02/28/18 22:08 Dose: Not Given Ondansetron HCl (Zofran Odt) 4 mg PO Q6H PRN PRN Reason: Nausea/Vomiting Ondansetron HCl (Zofran) 4 mg IVP Q6H PRN PRN Reason: Nausea/Vomiting Last Admin: 02/27/18 04:52 Dose: 4 mg Phenol (Chloraseptic [place] 180 Ml Bot) 0 ml PO PRN PRN PRN Reason: Sore Throat Saccharomyces Boulardii (Florastor) 250 mg PO BID [facility] Last Admin: 03/01/18 08:07 Dose: 250 mg Sodium Chloride (Flush - Normal Saline) 10 ml IVF Q12HR [facility] Last Admin: 03/01/18 08:11 Dose: 10 ml Sodium Chloride (Flush - Normal Saline) 10 ml IVF PRN PRN PRN Reason: Saline Flush Sodium Chloride ([place] Nasal [place] 0.65%) 0 ml EA NARE QIDPRN PRN PRN Reason: Nasal Congestion
[2018-03-01] MEDS: DIFICID 200 MG PO SCH ×2 (13:56→21:05)
[2018-03-01] MEDS: Gabapentin 300 MG CAP PO SCH (21:04)
--- NOTE | 2018-03-02 00:38 | PRG ---
DATE OF SERVICE: 03/01/2018 SUBJECTIVE: Feeling better. Diarrhea has ceased. No vomiting, no respiratory symptoms. OBJECTIVE: VITAL SIGNS: He is afebrile. BP 160/64. LUNGS: Clear. HEART: S1, S2, regular rate. ABDOMEN: Soft, moderately distended. Bowel sounds are normal, not tender. LABORATORY DATA: The C. diff toxin antigen positive. Currently, on Dificid. ASSESSMENT AND DISCUSSION: Waldenstrom macroglobulinemia prior episode of C. diff x2 treated with Fl agyl, vancomycin, and Dificid and recurrence of C. difficile colitis. At this time, we would continu e Dificid, hoping for response. I think we should refer him for fecal transplantation, since this i s third time after all the major options for treatment having been tried.
[2018-03-02 05:37] LABS: #Basophils 0.1 thou/uL (0.0-0.2); #Eosinphils 0.3 thou/uL (0.0-0.7); #Lymphocytes 1.4 thou/uL (1.20-3.40); #Monocytes 1.2 thou/uL (0.11-0.59); #Neutrophils 6.8 thou/uL (1.40-6.50); %Basophils 0.9 % (0.0-1.0); %Eosinophils 3.2 % (0.0-10.0); %Lymphocytes 14.4 % (21.0-51.0); %Monocytes 11.8 % (0.0-10.0); %Neutrophils 69.6 % (42.0-75.0); Hemoglobin 11.2 g/dL (14.0-18.0); Mean Corpuscular HGB CONC 32.3 g/dL (32.0-36.0); Mean Corpuscular Hemoglobin 27.8 pg (27.0-31.0); Mean Corpuscular Volume 86.2 fl (80.0-94.0); Mean Platelet Volume 9.3 fL (7.4-10.4); Platelet Count 127 thou/uL (130-400); RBC Distribution Width 13.9 % (11.5-14.5); Red Blood Cell (RBC) Count 4.02 mill/uL (4.70-6.10); White Blood Cell (WBC) Count 9.7 thou/uL (4.8-10.8)
[2018-03-02 06:02] LABS: ALT (SGPT) 19 U/L (8-55); AST (SGOT) 13 U/L (5-34); Alkaline Phosphatase 74 U/L (40-150); Anion Gap 10 mmol/L (10-20); BUN (Urea Nitrogen) 22 mg/dL (8.4-25.7); Bilirubin, Total 0.5 mg/dL (0.2-1.2); Calc. Creatinine Clearance 104 mL/min (70-130); Calcium 8.5 mg/dL (7.8-10.44); Carbon Dioxide 24 mmol/L (23-31); Chloride 112 mmol/L (98-107); Estimated GFR-MDRD Greater than 90; Globulin 2.1 g/dL (2.4-3.5); Glucose 90 mg/dL (83-110); Potassium 4.1 mmol/L (3.5-5.1); Protein, Total 5.1 g/dL (5.8-8.1); Sodium 142 mmol/L (136-145)
[2018-03-02] MEDS: Aspirin 325 MG TAB PO SCH (11:09)
[2018-03-02] MEDS: Famotidine 20 MG TAB PO SCH (11:09)
[2018-03-02] MEDS: Meloxicam 7.5 MG TAB PO SCH (11:10)
[2018-03-02] MEDS: DIFICID 200 MG PO SCH ×2 (11:40→20:08)
[2018-03-02] MEDS: Citalopram 20 MG TAB PO SCH (11:40)
[2018-03-02] MEDS: Saccharomyces boulardii 250 MG CAP PO SCH ×2 (11:40→20:08)
--- NOTE | 2018-03-02 12:21 | PDOC.PN ---
- Subjective Encounter Start Date: 03/02/18 Encounter Start Time: 07:30 Patient seen and examined. No new complaints. No overnight events no diarrhoea, no fever, feels fine - Objective Resuscitation Status: Resuscitation Status FULL:Full Resuscitation MAR Reviewed: Yes Vital Signs & Weight: Vital Signs (12 hours) Pulse Ox 03/02/18 07:00 92 L I&O: 03/01/18 03/02/18 03/03/18 06:59 06:59 06:59 Intake Total 1020 Output Total 1400 Balance -380 Result Diagrams: 03/02/18 04:29 03/02/18 04:29 Phys Exam - Physical Examination Constitutional: NAD HEENT: PERRLA, moist MMs, sclera anicteric Neck: no JVD, supple Respiratory: no wheezing, no rales, no rhonchi Cardiovascular: RRR, no significant murmur, no rub Gastrointestinal: soft, non-tender, no distention, positive bowel sounds Musculoskeletal: no edema, pulses present Neurological: non-focal, normal sensation Lymphatic: no nodes Psychiatric: normal affect Skin: no rash, normal turgor Dx/Plan (1) C. difficile colitis Status: Acute (2) Hypotension Status: Acute (3) Nausea & vomiting Code(s): R11.2 - NAUSEA WITH VOMITING, UNSPECIFIED Status: Acute (4) Sepsis Code(s): A41.9 - SEPSIS, UNSPECIFIED ORGANISM Status: Acute (5) Anxiety and depression Code(s): F41.9 - ANXIETY DISORDER, UNSPECIFIED; F32.9 - MAJOR DEPRESSIVE DISORDER, SINGLE EPISODE, UNSPECIFIED Status: Chronic (6) BPH (benign prostatic hyperplasia) Code(s): N40.0 - BENIGN PROSTATIC HYPERPLASIA WITHOUT LOWER URINRY TRACT SYMP Status: Chronic Qualifiers: (7) CKD (chronic kidney disease) stage 3, GFR 30-59 ml/min Status: Chronic (8) Chronic diastolic (congestive) heart failure Code(s): I50.32 - CHRONIC DIASTOLIC (CONGESTIVE) HEART FAILURE Status: Chronic (9) Dyslipidemia Code(s): E78.5 - HYPERLIPIDEMIA, UNSPECIFIED Status: Chronic (10) Hypertension Code(s): I10 - ESSENTIAL (PRIMARY) HYPERTENSION Status: Chronic Qualifiers: (11) AKIL on CPAP Code(s): G47.33 - OBSTRUCTIVE SLEEP APNEA (ADULT) (PEDIATRIC); Z99.89 - DEPENDENCE ON OTHER ENABLING MACHINES AND DEVICES Status: Chronic (12) Obesity (BMI 30.0-34.9) Code(s): E66.9 - OBESITY, UNSPECIFIED Status: Chronic (13) Pacemaker Code(s): Z95.0 - PRESENCE OF CARDIAC PACEMAKER Status: Chronic (14) Waldenstrom macroglobulinemia Code(s): C88.0 - WALDENSTROM MACROGLOBULINEMIA Status: Chronic - Plan cont current plan of care, plan discussed w/ family, continue antibiotics, long term care social worker * continue dificid 200 mg po bid * consult GI for fecal transplantation for recurrent c-diff infection * spoke with GI * updated plan with family * 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 Review of Systems - Review of Systems Constitutional: negative: fever, chills, sweats, weakness, malaise, other ENT: negative: Ear Pain, Ear Discharge, Nose Pain, Nose Discharge, Nose Congestion, Mouth Pain, Mouth Swelling, Throat Pain, Throat Swelling, Other Respiratory: negative: Cough, Dry, Shortness of Breath, Hemoptysis, SOB with Excertion, Pleuritic Pain, Sputum, Wheezing Cardiovascular: negative: chest pain, palpitations, orthopnea, paroxysmal nocturnal dyspnea, edema, light headedness, other Gastrointestinal: negative: Nausea, Vomiting, Abdominal Pain, Diarrhea, Constipation, Melena, Hematochezia, Other Genitourinary: negative: Dysuria, Frequency, Incontinence, Hematuria, Retention , Other Musculoskeletal: negative: Neck Pain, Shoulder Pain, Arm Pain, Back Pain, Hand Pain, Leg Pain, Foot Pain, Other Skin: negative: Rash, Lesions, [place], Bruising, Other - Medications/Allergies Allergies/Adverse Reactions: Allergies Allergy/AdvReac Type Severity Reaction Status Date / Time No Known Allergies Allergy Verified 03/09/17 23:08 Medications: Current Medications Acetaminophen (Tylenol) 500 mg PO Q6H PRN PRN Reason: Headache/Fever or Mild Pain Al Hydroxide/Mg Hydroxide (Maalox) 15 ml PO Q4H PRN PRN Reason: Heartburn or Indigestion Artificial Tears (Tears Naturale) 0 drop EA EYE PRN PRN PRN Reason: Dry Eyes Aspirin (Aspirin) 325 mg PO DAILY [facility] Last Admin: 03/02/18 11:09 Dose: 325 mg Azelastine HCl (Azelastine) 0 ml NS DAILY PRN PRN Reason: COUGH/CONGESTION Citalopram Hydrobromide (Celexa) 40 mg PO DAILY [facility] Last Admin: 03/02/18 11:40 Dose: 40 mg Clonidine (Catapres) 0.1 mg PO Q4H PRN PRN Reason: Systolic BP > 180 Famotidine (Pepcid) 20 mg PO DAILY [facility] Last Admin: 03/02/18 11:09 Dose: 20 mg Gabapentin (Neurontin) 600 mg PO HS [facility] Last Admin: 03/01/18 21:04 Dose: 600 mg Guaifenesin (Mucinex) 600 mg PO BID PRN PRN Reason: Cough Guaifenesin (Robitussin Sf) 200 mg PO Q4H PRN PRN Reason: Cough Hydralazine HCl (Apresoline) 10 mg SLOW IVP Q4H PRN PRN Reason: Systolic BP > 180 Loratadine (Claritin) 10 mg PO DAILYPRN PRN PRN Reason: Sinus Symptoms Meloxicam (Mobic) 7.5 mg PO DAILY [facility] Last Admin: 03/02/18 11:10 Dose: Not Given Mineral Oil/White Petrolatum (Eucerin Cream) 0 gm TOP BIDPRN PRN PRN Reason: Dry Skin Dificid 200 Mg Tab 0 each PO BID [facility] Stop: 03/10/18 21:01 Last Admin: 03/02/18 11:40 Dose: 1 each Ondansetron HCl (Zofran Odt) 4 mg PO Q6H PRN PRN Reason: Nausea/Vomiting Ondansetron HCl (Zofran) 4 mg IVP Q6H PRN PRN Reason: Nausea/Vomiting Last Admin: 02/27/18 04:52 Dose: 4 mg Phenol (Chloraseptic [place] 180 Ml Bot) 0 ml PO PRN PRN PRN Reason: Sore Throat Saccharomyces Boulardii (Florastor) 250 mg PO BID [facility] Last Admin: 03/02/18 11:40 Dose: 250 mg Sodium Chloride (Flush - Normal Saline) 10 ml IVF Q12HR [facility] Last Admin: 03/02/18 11:41 Dose: Not Given Sodium Chloride (Flush - Normal Saline) 10 ml IVF PRN PRN PRN Reason: Saline Flush Sodium Chloride ([place] Nasal [place] 0.65%) 0 ml EA NARE QIDPRN PRN PRN Reason: Nasal Congestion
[2018-03-02] MEDS: Gabapentin 300 MG CAP PO SCH (20:07)
--- NOTE | 2018-03-03 03:57 | CON ---
DATE OF CONSULTATION: 03/02/2018 CHIEF COMPLAINT: Nausea and vomiting and weakness. HISTORY OF PRESENT ILLNESS: Mr. Vincent is an 87-year-old man who was admitted with nausea and vomi ting and weakness on 02/27/2018. He had a stool sample checked, which was found to be positive for C . diff antigen and positive for C. diff toxin. He has not had diarrhea with this episode. He had no bowel movement yesterday. He had a small stool with some form today. He tested positive for C. dif f toxigenic by PCR on 02/27/2018. He was started on Dificid. Today, he had a repeat stool sample pe rformed with the one small stool that he did have and this was found to be positive for C. diff toxin and antigen. Currently, he has no nausea, vomiting, no abdominal pain and his abdomen is not disten ded. He has been treated with multiple courses of antibiotics in the past including penicillin, Roce phin for cellulitis. He was treated for C. diff back in 2014. He states that he was treated with mu ltiple different courses of antibiotics over several months. He has been evaluated by Dr. Shipley and fecal transplant is recommended. He now again has persistent C. diff toxin positive despite treatmen t with Dificid. He is still early in this course of the Dificid and might still respond to this medi cine. Again, he had no bowel movement yesterday and only small bowel movement today, but he does not appear toxic in any way. PAST MEDICAL HISTORY: Waldenstrom macroglobulinemia, hypertension, BPH, obstructive sleep apnea, chr onic renal insufficiency, lymphedema, and cellulitis, C. diff colitis. PAST SURGICAL HISTORY: Prostatectomy, tonsillectomy, pacemaker placement, hernia repair. FAMILY HISTORY: Negative for GI malignancies. SOCIAL HISTORY: No alcohol or drugs. He smoked in the past. ALLERGIES: No known drug allergies. MEDICATIONS: Currently include aspirin, citalopram, Dificid, famotidine, Neurontin, meloxicam, Maggie stor. REVIEW OF SYSTEMS: Negative x10 systems reviewed except as stated in history of present illness. PHYSICAL EXAMINATION: VITAL SIGNS: Temperature 98.2, pulse 68, blood pressure 159/72. GENERAL: He is in no acute distress. He is awake and alert. LUNGS: Clear to auscultation bilaterally. HEART: Regular rate and rhythm without murmur. ABDOMEN: Soft, nontender, nondistended. Bowel sounds are present. EXTREMITIES: No lower extremity edema. There is no cervical or supraclavicular lymphadenopathy. LABORATORY DATA: White blood cell count is 9.7 today down from 23 on 02/27/2018, hemoglobin 11.2, pl atelets 127, creatinine 0.69, albumin 3.0. IMPRESSION: Recurrent Clostridium difficile colitis. Previously requiring multiple courses of vanco mycin and now repeat a course of Dificid. The fact that he is not having significant diarrhea and co ntinues to have positive C. diff toxin could be concerning. The low serum albumin has a negative pro gnostic sign. RECOMMENDATIONS: At this point, agree with evaluation for fecal transplant. His daughter as a poten tial donor and we will need to initiate labs and stool studies for her. The daughter and the patient both live in [place] and this could potentially be done as an outpatient. I will discuss this further with the daughter tomorrow.
[2018-03-03] MEDS: Citalopram 20 MG TAB PO SCH (08:48)
[2018-03-03] MEDS: Aspirin 325 MG TAB PO SCH (08:48)
[2018-03-03] MEDS: Saccharomyces boulardii 250 MG CAP PO SCH ×2 (08:48→21:34)
[2018-03-03] MEDS: Meloxicam 7.5 MG TAB PO SCH (08:49)
[2018-03-03] MEDS: Famotidine 20 MG TAB PO SCH (08:49)
--- NOTE | 2018-03-03 10:56 | PDOC.PN ---
- Subjective Encounter Start Date: 03/03/18 Encounter Start Time: 09:30 Patient seen and examined. No new complaints. No overnight events - Objective Resuscitation Status: Resuscitation Status FULL:Full Resuscitation MAR Reviewed: Yes Vital Signs & Weight: Vital Signs (12 hours) Temp Pulse Resp Pulse Ox 03/03/18 08:00 98.1 F 87 22 H 03/03/18 06:43 94 L I&O: 03/02/18 03/03/18 03/04/18 06:59 06:59 06:59 Intake Total 20 Balance 20 Result Diagrams: 03/02/18 04:29 03/02/18 04:29 Phys Exam - Physical Examination Constitutional: NAD HEENT: PERRLA, moist MMs, sclera anicteric Neck: no JVD, supple Respiratory: no wheezing, no rales, no rhonchi Cardiovascular: RRR, no significant murmur, no rub Gastrointestinal: soft, non-tender, no distention, positive bowel sounds Musculoskeletal: no edema, pulses present Neurological: non-focal, normal sensation Lymphatic: no nodes Psychiatric: normal affect, A&O x 3 Skin: no rash, normal turgor Dx/Plan (1) C. difficile colitis Status: Acute (2) Hypotension Status: Acute (3) Nausea & vomiting Code(s): R11.2 - NAUSEA WITH VOMITING, UNSPECIFIED Status: Acute (4) Sepsis Code(s): A41.9 - SEPSIS, UNSPECIFIED ORGANISM Status: Acute (5) Anxiety and depression Code(s): F41.9 - ANXIETY DISORDER, UNSPECIFIED; F32.9 - MAJOR DEPRESSIVE DISORDER, SINGLE EPISODE, UNSPECIFIED Status: Chronic (6) BPH (benign prostatic hyperplasia) Code(s): N40.0 - BENIGN PROSTATIC HYPERPLASIA WITHOUT LOWER URINRY TRACT SYMP Status: Chronic Qualifiers: (7) CKD (chronic kidney disease) stage 3, GFR 30-59 ml/min Status: Chronic (8) Chronic diastolic (congestive) heart failure Code(s): I50.32 - CHRONIC DIASTOLIC (CONGESTIVE) HEART FAILURE Status: Chronic (9) Dyslipidemia Code(s): E78.5 - HYPERLIPIDEMIA, UNSPECIFIED Status: Chronic (10) Hypertension Code(s): I10 - ESSENTIAL (PRIMARY) HYPERTENSION Status: Chronic Qualifiers: (11) AKIL on CPAP Code(s): G47.33 - OBSTRUCTIVE SLEEP APNEA (ADULT) (PEDIATRIC); Z99.89 - DEPENDENCE ON OTHER ENABLING MACHINES AND DEVICES Status: Chronic (12) Obesity (BMI 30.0-34.9) Code(s): E66.9 - OBESITY, UNSPECIFIED Status: Chronic (13) Pacemaker Code(s): Z95.0 - PRESENCE OF CARDIAC PACEMAKER Status: Chronic (14) Waldenstrom macroglobulinemia Code(s): C88.0 - WALDENSTROM MACROGLOBULINEMIA Status: Chronic - Plan cont current plan of care, plan discussed w/ family, 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 * fecal transplantation information given to family and for that they have to follow up with GI clinic after discharge * medication reviewed as below * symptomatic treatment Review of Systems - Review of Systems ENT: negative: Ear Pain, Ear Discharge, Nose Pain, Nose Discharge, Nose Congestion, Mouth Pain, Mouth Swelling, Throat Pain, Throat Swelling, Other Respiratory: negative: Cough, Dry, Shortness of Breath, Hemoptysis, SOB with Excertion, Pleuritic Pain, Sputum, Wheezing Cardiovascular: negative: chest pain, palpitations, orthopnea, paroxysmal nocturnal dyspnea, edema, light headedness, other Gastrointestinal: negative: Nausea, Vomiting, Abdominal Pain, Diarrhea, Constipation, Melena, Hematochezia, Other Genitourinary: negative: Dysuria, Frequency, Incontinence, Hematuria, Retention , Other Musculoskeletal: negative: Neck Pain, Shoulder Pain, Arm Pain, Back Pain, Hand Pain, Leg Pain, Foot Pain, Other Skin: negative: Rash, Lesions, [place], Bruising, Other - Medications/Allergies Allergies/Adverse Reactions: Allergies Allergy/AdvReac Type Severity Reaction Status Date / Time No Known Allergies Allergy Verified 03/09/17 23:08 Medications: Current Medications Acetaminophen (Tylenol) 500 mg PO Q6H PRN PRN Reason: Headache/Fever or Mild Pain Al Hydroxide/Mg Hydroxide (Maalox) 15 ml PO Q4H PRN PRN Reason: Heartburn or Indigestion Artificial Tears (Tears Naturale) 0 drop EA EYE PRN PRN PRN Reason: Dry Eyes Aspirin (Aspirin) 325 mg PO DAILY [facility] Last Admin: 03/03/18 08:48 Dose: 325 mg Azelastine HCl (Azelastine) 0 ml NS DAILY PRN PRN Reason: COUGH/CONGESTION Citalopram Hydrobromide (Celexa) 40 mg PO DAILY [facility] Last Admin: 03/03/18 08:48 Dose: 40 mg Clonidine (Catapres) 0.1 mg PO Q4H PRN PRN Reason: Systolic BP > 180 Famotidine (Pepcid) 20 mg PO DAILY [facility] Last Admin: 03/03/18 08:49 Dose: 20 mg Gabapentin (Neurontin) 600 mg PO HS [facility] Last Admin: 03/02/18 20:07 Dose: 600 mg Guaifenesin (Mucinex) 600 mg PO BID PRN PRN Reason: Cough Guaifenesin (Robitussin Sf) 200 mg PO Q4H PRN PRN Reason: Cough Hydralazine HCl (Apresoline) 10 mg SLOW IVP Q4H PRN PRN Reason: Systolic BP > 180 Loratadine (Claritin) 10 mg PO DAILYPRN PRN PRN Reason: Sinus Symptoms Meloxicam (Mobic) 7.5 mg PO DAILY [facility] Last Admin: 03/03/18 08:49 Dose: 7.5 mg Mineral Oil/White Petrolatum (Eucerin Cream) 0 gm TOP BIDPRN PRN PRN Reason: Dry Skin Dificid 200 Mg Tab 0 each PO BID [facility] Stop: 03/10/18 21:01 Last Admin: 03/02/18 20:08 Dose: 1 each Ondansetron HCl (Zofran Odt) 4 mg PO Q6H PRN PRN Reason: Nausea/Vomiting Ondansetron HCl (Zofran) 4 mg IVP Q6H PRN PRN Reason: Nausea/Vomiting Last Admin: 02/27/18 04:52 Dose: 4 mg Phenol (Chloraseptic [place] 180 Ml Bot) 0 ml PO PRN PRN PRN Reason: Sore Throat Saccharomyces Boulardii (Florastor) 250 mg PO BID [facility] Last Admin: 03/03/18 08:48 Dose: 250 mg Sodium Chloride (Flush - Normal Saline) 10 ml IVF Q12HR [facility] Last Admin: 03/03/18 08:50 Dose: Not Given Sodium Chloride (Flush - Normal Saline) 10 ml IVF PRN PRN PRN Reason: Saline Flush Sodium Chloride ([place] Nasal [place] 0.65%) 0 ml EA NARE QIDPRN PRN PRN Reason: Nasal Congestion
[2018-03-03] MEDS: DIFICID 200 MG PO SCH ×2 (12:35→21:34)
--- NOTE | 2018-03-03 15:09 | PRG ---
DATE OF SERVICE: 03/03/2018 SUBJECTIVE: The patient is feeling well. He is eating well. He says he has had 1 formed bowel move ment today, having no fever or chills, no nausea, vomiting. OBJECTIVE: VITAL SIGNS: Temperature 98.1, pulse 87, respiratory rate 22, and blood pressure 167/67. HEENT: Unremarkable. CHEST: Clear. CARDIOVASCULAR: Regular rate and rhythm. ABDOMEN: Benign. LABORATORY DATA: Shows a white blood cell count of 97, hemoglobin 11.2, hematocrit 34.6, and platele t count 127. C. difficile was positive. ASSESSMENT: Recurrent Clostridium difficile infection. The patient is clinically asymptomatic witho ut diarrhea. RECOMMENDATIONS: 1. Continue Dificid. 2. We will attempt to get daughter to come in for evaluation for donor stool. 3. Fecal transplant once is complete.
[2018-03-03] MEDS: Gabapentin 300 MG CAP PO SCH (21:34)
[2018-03-04] MEDS: Citalopram 20 MG TAB PO SCH (09:01)
[2018-03-04] MEDS: Famotidine 20 MG TAB PO SCH (09:01)
[2018-03-04] MEDS: Aspirin 325 MG TAB PO SCH (09:02)
[2018-03-04] MEDS: Meloxicam 7.5 MG TAB PO SCH (09:02)
[2018-03-04] MEDS: Saccharomyces boulardii 250 MG CAP PO SCH ×2 (09:02→21:01)
--- NOTE | 2018-03-04 12:33 | PDOC.PN ---
- Subjective Encounter Start Date: 03/04/18 Encounter Start Time: 09:45 Patient seen and examined. No new complaints. No overnight events - Objective Resuscitation Status: Resuscitation Status FULL:Full Resuscitation MAR Reviewed: Yes Vital Signs & Weight: Vital Signs (12 hours) Temp Pulse Resp BP Pulse Ox 03/04/18 08:00 98.2 F 81 18 160/68 H 90 L I&O: 03/03/18 03/04/18 03/05/18 06:59 06:59 06:59 Intake Total 20 1300 Balance 20 1300 Result Diagrams: 03/02/18 04:29 03/02/18 04:29 Phys Exam - Physical Examination Constitutional: NAD HEENT: PERRLA, moist MMs, sclera anicteric Neck: no JVD, supple Respiratory: no wheezing, no rales, no rhonchi Cardiovascular: RRR, no significant murmur, no rub Gastrointestinal: soft, non-tender, no distention, positive bowel sounds Musculoskeletal: no edema, pulses present Neurological: non-focal, normal sensation, moves all 4 limbs Psychiatric: normal affect, A&O x 3 Skin: no rash, normal turgor Dx/Plan (1) C. difficile colitis Status: Acute (2) Hypotension Status: Acute (3) Nausea & vomiting Code(s): R11.2 - NAUSEA WITH VOMITING, UNSPECIFIED Status: Acute (4) Sepsis Code(s): A41.9 - SEPSIS, UNSPECIFIED ORGANISM Status: Acute (5) Anxiety and depression Code(s): F41.9 - ANXIETY DISORDER, UNSPECIFIED; F32.9 - MAJOR DEPRESSIVE DISORDER, SINGLE EPISODE, UNSPECIFIED Status: Chronic (6) BPH (benign prostatic hyperplasia) Code(s): N40.0 - BENIGN PROSTATIC HYPERPLASIA WITHOUT LOWER URINRY TRACT SYMP Status: Chronic Qualifiers: (7) CKD (chronic kidney disease) stage 3, GFR 30-59 ml/min Status: Chronic (8) Chronic diastolic (congestive) heart failure Code(s): I50.32 - CHRONIC DIASTOLIC (CONGESTIVE) HEART FAILURE Status: Chronic (9) Dyslipidemia Code(s): E78.5 - HYPERLIPIDEMIA, UNSPECIFIED Status: Chronic (10) Hypertension Code(s): I10 - ESSENTIAL (PRIMARY) HYPERTENSION Status: Chronic Qualifiers: (11) AKIL on CPAP Code(s): G47.33 - OBSTRUCTIVE SLEEP APNEA (ADULT) (PEDIATRIC); Z99.89 - DEPENDENCE ON OTHER ENABLING MACHINES AND DEVICES Status: Chronic (12) Obesity (BMI 30.0-34.9) Code(s): E66.9 - OBESITY, UNSPECIFIED Status: Chronic (13) Pacemaker Code(s): Z95.0 - PRESENCE OF CARDIAC PACEMAKER Status: Chronic (14) Waldenstrom macroglobulinemia Code(s): C88.0 - WALDENSTROM MACROGLOBULINEMIA Status: Chronic - Plan cont current plan of care, continue antibiotics, 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 Review of Systems - Review of Systems ENT: negative: Ear Pain, Ear Discharge, Nose Pain, Nose Discharge, Nose Congestion, Mouth Pain, Mouth Swelling, Throat Pain, Throat Swelling, Other Respiratory: negative: Cough, Dry, Shortness of Breath, Hemoptysis, SOB with Excertion, Pleuritic Pain, Sputum, Wheezing Cardiovascular: negative: chest pain, palpitations, orthopnea, paroxysmal nocturnal dyspnea, edema, light headedness, other Gastrointestinal: negative: Nausea, Vomiting, Abdominal Pain, Diarrhea, Constipation, Melena, Hematochezia, Other Genitourinary: negative: Dysuria, Frequency, Incontinence, Hematuria, Retention , Other Musculoskeletal: negative: Neck Pain, Shoulder Pain, Arm Pain, Back Pain, Hand Pain, Leg Pain, Foot Pain, Other Skin: negative: Rash, Lesions, [place], Bruising, Other - Medications/Allergies Allergies/Adverse Reactions: Allergies Allergy/AdvReac Type Severity Reaction Status Date / Time No Known Allergies Allergy Verified 03/09/17 23:08 Medications: Current Medications Acetaminophen (Tylenol) 500 mg PO Q6H PRN PRN Reason: Headache/Fever or Mild Pain Al Hydroxide/Mg Hydroxide (Maalox) 15 ml PO Q4H PRN PRN Reason: Heartburn or Indigestion Artificial Tears (Tears Naturale) 0 drop EA EYE PRN PRN PRN Reason: Dry Eyes Aspirin (Aspirin) 325 mg PO DAILY [facility] Last Admin: 03/04/18 09:02 Dose: 325 mg Azelastine HCl (Azelastine) 0 ml NS DAILY PRN PRN Reason: COUGH/CONGESTION Citalopram Hydrobromide (Celexa) 40 mg PO DAILY [facility] Last Admin: 03/04/18 09:01 Dose: 40 mg Clonidine (Catapres) 0.1 mg PO Q4H PRN PRN Reason: Systolic BP > 180 Famotidine (Pepcid) 20 mg PO DAILY [facility] Last Admin: 03/04/18 09:01 Dose: 20 mg Gabapentin (Neurontin) 600 mg PO HS [facility] Last Admin: 03/03/18 21:34 Dose: 600 mg Guaifenesin (Mucinex) 600 mg PO BID PRN PRN Reason: Cough Guaifenesin (Robitussin Sf) 200 mg PO Q4H PRN PRN Reason: Cough Hydralazine HCl (Apresoline) 10 mg SLOW IVP Q4H PRN PRN Reason: Systolic BP > 180 Loratadine (Claritin) 10 mg PO DAILYPRN PRN PRN Reason: Sinus Symptoms Meloxicam (Mobic) 7.5 mg PO DAILY [facility] Last Admin: 03/04/18 09:02 Dose: 7.5 mg Mineral Oil/White Petrolatum (Eucerin Cream) 0 gm TOP BIDPRN PRN PRN Reason: Dry Skin Dificid 200 Mg Tab 0 each PO BID [facility] Stop: 03/10/18 21:01 Last Admin: 03/03/18 21:34 Dose: 1 each Ondansetron HCl (Zofran Odt) 4 mg PO Q6H PRN PRN Reason: Nausea/Vomiting Ondansetron HCl (Zofran) 4 mg IVP Q6H PRN PRN Reason: Nausea/Vomiting Last Admin: 02/27/18 04:52 Dose: 4 mg Phenol (Chloraseptic [place] 180 Ml Bot) 0 ml PO PRN PRN PRN Reason: Sore Throat Saccharomyces Boulardii (Florastor) 250 mg PO BID [facility] Last Admin: 03/04/18 09:02 Dose: 250 mg Sodium Chloride (Flush - Normal Saline) 10 ml IVF Q12HR [facility] Last Admin: 03/04/18 09:03 Dose: Not Given Sodium Chloride (Flush - Normal Saline) 10 ml IVF PRN PRN PRN Reason: Saline Flush Sodium Chloride ([place] Nasal [place] 0.65%) 0 ml EA NARE QIDPRN PRN PRN Reason: Nasal Congestion
[2018-03-04] MEDS: DIFICID 200 MG PO SCH ×2 (13:17→20:56)
--- NOTE | 2018-03-04 14:16 | PRG ---
DATE OF SERVICE: 03/04/2018 SUBJECTIVE: The patient is feeling well. He is having no abdominal pain, no nausea or vomiting. He denies diarrhea. OBJECTIVE: VITAL SIGNS: Temperature 98.2, pulse 81, respiratory rate 18, blood pressure 160/88. CHEST: Clear. CARDIOVASCULAR: Regular rate and rhythm. ABDOMEN: Benign. LABORATORY DATA: Repeat C. difficile was ordered, but not performed yet. ASSESSMENT: Clostridium difficile - I discussed with the daughter yesterday about the patient's C. d ifficile. This really is not a recurrent episode as he had his last episode 2 years ago. He is havi ng little or no diarrhea with the C. diff. PLAN: At this point I would recommend Dificid for 10-14 days. I see him in the outpatient setting. RECOMMENDATIONS: 1. Repeat stool studies so he can return to his living situation. 2. Continue Dificid. 3. Follow up with GI as outpatient.
[2018-03-04] MEDS: Gabapentin 300 MG CAP PO SCH (20:55)
[2018-03-05] MEDS: Citalopram 20 MG TAB PO SCH (09:18)
[2018-03-05] MEDS: Aspirin 325 MG TAB PO SCH (09:18)
[2018-03-05] MEDS: Famotidine 20 MG TAB PO SCH (09:18)
[2018-03-05] MEDS: Meloxicam 7.5 MG TAB PO SCH (09:19)
[2018-03-05] MEDS: Saccharomyces boulardii 250 MG CAP PO SCH ×2 (09:25→20:44)
[2018-03-05] MEDS: Fidaxomicin 200 MG TAB PO SCH ×2 (10:38→20:44)
[2018-03-05] MEDS: DIFICID 200 MG PO SCH (10:39)
[2018-03-05] MEDS ORDERED: Fidaxomicin 200 MG TAB PO SCH (11:00)
--- NOTE | 2018-03-05 11:51 | PDOC.PN ---
- Subjective Encounter Start Date: 03/05/18 Encounter Start Time: 09:30 Patient seen and examined. No new complaints. No overnight events - Objective Resuscitation Status: Resuscitation Status FULL:Full Resuscitation MAR Reviewed: Yes Vital Signs & Weight: Vital Signs (12 hours) Temp Pulse Resp BP Pulse Ox 03/05/18 08:00 97.6 F 102 H 16 93 L 03/05/18 07:34 97.6 F 102 H 16 155/69 H 93 L I&O: 03/04/18 03/05/18 03/06/18 06:59 06:59 06:59 Intake Total 1300 Balance 1300 Result Diagrams: 03/02/18 04:29 03/02/18 04:29 Phys Exam - Physical Examination Constitutional: NAD HEENT: PERRLA, moist MMs, sclera anicteric Neck: no JVD, supple Respiratory: no wheezing, no rales, no rhonchi Cardiovascular: RRR, no significant murmur, no rub Gastrointestinal: soft, non-tender, no distention, positive bowel sounds Musculoskeletal: no edema, pulses present Neurological: non-focal, normal sensation, moves all 4 limbs Psychiatric: normal affect, A&O x 3 Skin: no rash, normal turgor Dx/Plan (1) C. difficile colitis Status: Acute (2) Hypotension Status: Acute (3) Nausea & vomiting Code(s): R11.2 - NAUSEA WITH VOMITING, UNSPECIFIED Status: Acute (4) Sepsis Code(s): A41.9 - SEPSIS, UNSPECIFIED ORGANISM Status: Acute (5) Anxiety and depression Code(s): F41.9 - ANXIETY DISORDER, UNSPECIFIED; F32.9 - MAJOR DEPRESSIVE DISORDER, SINGLE EPISODE, UNSPECIFIED Status: Chronic (6) BPH (benign prostatic hyperplasia) Code(s): N40.0 - BENIGN PROSTATIC HYPERPLASIA WITHOUT LOWER URINRY TRACT SYMP Status: Chronic Qualifiers: (7) CKD (chronic kidney disease) stage 3, GFR 30-59 ml/min Status: Chronic (8) Chronic diastolic (congestive) heart failure Code(s): I50.32 - CHRONIC DIASTOLIC (CONGESTIVE) HEART FAILURE Status: Chronic (9) Dyslipidemia Code(s): E78.5 - HYPERLIPIDEMIA, UNSPECIFIED Status: Chronic (10) Hypertension Code(s): I10 - ESSENTIAL (PRIMARY) HYPERTENSION Status: Chronic Qualifiers: (11) AKIL on CPAP Code(s): G47.33 - OBSTRUCTIVE SLEEP APNEA (ADULT) (PEDIATRIC); Z99.89 - DEPENDENCE ON OTHER ENABLING MACHINES AND DEVICES Status: Chronic (12) Obesity (BMI 30.0-34.9) Code(s): E66.9 - OBESITY, UNSPECIFIED Status: Chronic (13) Pacemaker Code(s): Z95.0 - PRESENCE OF CARDIAC PACEMAKER Status: Chronic (14) Waldenstrom macroglobulinemia Code(s): C88.0 - WALDENSTROM MACROGLOBULINEMIA Status: Chronic - Plan cont current plan of care, plan discussed w/ family, continue antibiotics * continue dificid * once we have negative c-diff in stool, we will discharge * stable medically * his assisted living facility has policy to not return until negative c-diff * medication reviewed as below * symptomatic treatment. Review of Systems - Review of Systems ENT: negative: Ear Pain, Ear Discharge, Nose Pain, Nose Discharge, Nose Congestion, Mouth Pain, Mouth Swelling, Throat Pain, Throat Swelling, Other Respiratory: negative: Cough, Dry, Shortness of Breath, Hemoptysis, SOB with Excertion, Pleuritic Pain, Sputum, Wheezing Cardiovascular: negative: chest pain, palpitations, orthopnea, paroxysmal nocturnal dyspnea, edema, light headedness, other Gastrointestinal: negative: Nausea, Vomiting, Abdominal Pain, Diarrhea, Constipation, Melena, Hematochezia, Other Genitourinary: negative: Dysuria, Frequency, Incontinence, Hematuria, Retention , Other Musculoskeletal: negative: Neck Pain, Shoulder Pain, Arm Pain, Back Pain, Hand Pain, Leg Pain, Foot Pain, Other Skin: negative: Rash, Lesions, [place], Bruising, Other - Medications/Allergies Allergies/Adverse Reactions: Allergies Allergy/AdvReac Type Severity Reaction Status Date / Time No Known Allergies Allergy Verified 03/09/17 23:08 Medications: Current Medications Acetaminophen (Tylenol) 500 mg PO Q6H PRN PRN Reason: Headache/Fever or Mild Pain Al Hydroxide/Mg Hydroxide (Maalox) 15 ml PO Q4H PRN PRN Reason: Heartburn or Indigestion Artificial Tears (Tears Naturale) 0 drop EA EYE PRN PRN PRN Reason: Dry Eyes Aspirin (Aspirin) 325 mg PO DAILY [facility] Last Admin: 03/05/18 09:18 Dose: 325 mg Azelastine HCl (Azelastine) 0 ml NS DAILY PRN PRN Reason: COUGH/CONGESTION Citalopram Hydrobromide (Celexa) 40 mg PO DAILY [facility] Last Admin: 03/05/18 09:18 Dose: 40 mg Clonidine (Catapres) 0.1 mg PO Q4H PRN PRN Reason: Systolic BP > 180 Famotidine (Pepcid) 20 mg PO DAILY [facility] Last Admin: 03/05/18 09:18 Dose: 20 mg Fidaxomicin (Dificid) 200 mg PO BID [facility] Stop: 03/10/18 21:01 Last Admin: 03/05/18 10:38 Dose: 200 mg Gabapentin (Neurontin) 600 mg PO HS [facility] Last Admin: 03/04/18 20:55 Dose: 600 mg Guaifenesin (Mucinex) 600 mg PO BID PRN PRN Reason: Cough Guaifenesin (Robitussin Sf) 200 mg PO Q4H PRN PRN Reason: Cough Hydralazine HCl (Apresoline) 10 mg SLOW IVP Q4H PRN PRN Reason: Systolic BP > 180 Loratadine (Claritin) 10 mg PO DAILYPRN PRN PRN Reason: Sinus Symptoms Meloxicam (Mobic) 7.5 mg PO DAILY [facility] Last Admin: 03/05/18 09:19 Dose: 7.5 mg Mineral Oil/White Petrolatum (Eucerin Cream) 0 gm TOP BIDPRN PRN PRN Reason: Dry Skin Ondansetron HCl (Zofran Odt) 4 mg PO Q6H PRN PRN Reason: Nausea/Vomiting Ondansetron HCl (Zofran) 4 mg IVP Q6H PRN PRN Reason: Nausea/Vomiting Last Admin: 02/27/18 04:52 Dose: 4 mg Phenol (Chloraseptic [place] 180 Ml Bot) 0 ml PO PRN PRN PRN Reason: Sore Throat Saccharomyces Boulardii (Florastor) 250 mg PO BID [facility] Last Admin: 03/05/18 09:25 Dose: 250 mg Sodium Chloride (Flush - Normal Saline) 10 ml IVF Q12HR [facility] Last Admin: 03/05/18 09:27 Dose: Not Given Sodium Chloride (Flush - Normal Saline) 10 ml IVF PRN PRN PRN Reason: Saline Flush Sodium Chloride ([place] Nasal [place] 0.65%) 0 ml EA NARE QIDPRN PRN PRN Reason: Nasal Congestion
--- NOTE | 2018-03-05 12:44 | PRG ---
DATE OF SERVICE: 03/05/2018 SUBJECTIVE: The patient is doing well. He has had several formed stools. The lab will not test the m because they are formed. He is not having any abdominal pain. No longer having diarrhea. He is e ating well. OBJECTIVE: VITAL SIGNS: Temperature is 97.6, pulse 102, respiratory rate 12. Her blood pressure 155/69. CHEST: Clear. CARDIOVASCULAR: Regular rate and rhythm. ABDOMEN: Soft, nontender, without organomegaly or masses. ASSESSMENT: Clostridium difficile - clinically resolved. RECOMMENDATIONS: 1. I discussed the situation with the lab camera supervisor and then may perform a test on the formed stool to document C. difficile toxigenic negativity. 2. Continue Dificid. 3. Continue probiotic. 4. Stable for discharge from GI standpoint. 5. Dr. Ledesma covering, call if needed.
[2018-03-05] MEDS: Gabapentin 300 MG CAP PO SCH (20:44)
[2018-03-06] MEDS: Aspirin 325 MG TAB PO SCH (08:42)
[2018-03-06] MEDS: Citalopram 20 MG TAB PO SCH (08:42)
[2018-03-06] MEDS: Famotidine 20 MG TAB PO SCH (08:42)
[2018-03-06] MEDS: Fidaxomicin 200 MG TAB PO SCH (08:42)
[2018-03-06] MEDS: Meloxicam 7.5 MG TAB PO SCH (08:42)
[2018-03-06] MEDS: Saccharomyces boulardii 250 MG CAP PO SCH (08:42)
--- NOTE | 2018-03-06 09:58 | PDOC.PN ---
- Subjective Encounter Start Date: 03/06/18 Encounter Start Time: 07:10 Patient seen and examined. No new complaints. No overnight events - Objective Resuscitation Status: Resuscitation Status FULL:Full Resuscitation MAR Reviewed: Yes Vital Signs & Weight: Vital Signs (12 hours) Temp Pulse Resp BP Pulse Ox 03/06/18 08:00 98.0 F 73 18 138/63 97 Weight Weight 209 lb 8 oz I&O: 03/05/18 03/06/18 03/07/18 06:59 06:59 06:59 Intake Total 1260 Balance 1260 Result Diagrams: 03/02/18 04:29 03/02/18 04:29 Phys Exam - Physical Examination Constitutional: NAD HEENT: PERRLA, moist MMs, sclera anicteric Neck: no JVD, supple Respiratory: no wheezing, no rales, no rhonchi Cardiovascular: RRR, no significant murmur, no rub Gastrointestinal: soft, non-tender, no distention, positive bowel sounds Musculoskeletal: no edema, pulses present Neurological: non-focal, normal sensation, moves all 4 limbs Psychiatric: normal affect, A&O x 3 Skin: no rash, normal turgor Dx/Plan (1) C. difficile colitis Status: Acute (2) Hypotension Status: Acute (3) Nausea & vomiting Code(s): R11.2 - NAUSEA WITH VOMITING, UNSPECIFIED Status: Acute (4) Sepsis Code(s): A41.9 - SEPSIS, UNSPECIFIED ORGANISM Status: Acute (5) Anxiety and depression Code(s): F41.9 - ANXIETY DISORDER, UNSPECIFIED; F32.9 - MAJOR DEPRESSIVE DISORDER, SINGLE EPISODE, UNSPECIFIED Status: Chronic (6) BPH (benign prostatic hyperplasia) Code(s): N40.0 - BENIGN PROSTATIC HYPERPLASIA WITHOUT LOWER URINRY TRACT SYMP Status: Chronic Qualifiers: (7) CKD (chronic kidney disease) stage 3, GFR 30-59 ml/min Status: Chronic (8) Chronic diastolic (congestive) heart failure Code(s): I50.32 - CHRONIC DIASTOLIC (CONGESTIVE) HEART FAILURE Status: Chronic (9) Dyslipidemia Code(s): E78.5 - HYPERLIPIDEMIA, UNSPECIFIED Status: Chronic (10) Hypertension Code(s): I10 - ESSENTIAL (PRIMARY) HYPERTENSION Status: Chronic Qualifiers: (11) AKIL on CPAP Code(s): G47.33 - OBSTRUCTIVE SLEEP APNEA (ADULT) (PEDIATRIC); Z99.89 - DEPENDENCE ON OTHER ENABLING MACHINES AND DEVICES Status: Chronic (12) Obesity (BMI 30.0-34.9) Code(s): E66.9 - OBESITY, UNSPECIFIED Status: Chronic (13) Pacemaker Code(s): Z95.0 - PRESENCE OF CARDIAC PACEMAKER Status: Chronic (14) Waldenstrom macroglobulinemia Code(s): C88.0 - WALDENSTROM MACROGLOBULINEMIA Status: Chronic - Plan cont current plan of care, continue antibiotics * once his assisted living facility will accept, will discharge * last c-dif is antigen positive and toxin negative * pt does not have any diarrhoea and he has formed stool * medication reviewed as below * symptomatic treatment * continue dificid. Review of Systems - Review of Systems ENT: negative: Ear Pain, Ear Discharge, Nose Pain, Nose Discharge, Nose Congestion, Mouth Pain, Mouth Swelling, Throat Pain, Throat Swelling, Other Respiratory: negative: Cough, Dry, Shortness of Breath, Hemoptysis, SOB with Excertion, Pleuritic Pain, Sputum, Wheezing Cardiovascular: negative: chest pain, palpitations, orthopnea, paroxysmal nocturnal dyspnea, edema, light headedness, other Gastrointestinal: negative: Nausea, Vomiting, Abdominal Pain, Diarrhea, Constipation, Melena, Hematochezia, Other Genitourinary: negative: Dysuria, Frequency, Incontinence, Hematuria, Retention , Other Musculoskeletal: negative: Neck Pain, Shoulder Pain, Arm Pain, Back Pain, Hand Pain, Leg Pain, Foot Pain, Other - Medications/Allergies Allergies/Adverse Reactions: Allergies Allergy/AdvReac Type Severity Reaction Status Date / Time No Known Allergies Allergy Verified 03/09/17 23:08 Medications: Current Medications Acetaminophen (Tylenol) 500 mg PO Q6H PRN PRN Reason: Headache/Fever or Mild Pain Al Hydroxide/Mg Hydroxide (Maalox) 15 ml PO Q4H PRN PRN Reason: Heartburn or Indigestion Artificial Tears (Tears Naturale) 0 drop EA EYE PRN PRN PRN Reason: Dry Eyes Aspirin (Aspirin) 325 mg PO DAILY [facility] Last Admin: 03/06/18 08:42 Dose: 325 mg Azelastine HCl (Azelastine) 0 ml NS DAILY PRN PRN Reason: COUGH/CONGESTION Citalopram Hydrobromide (Celexa) 40 mg PO DAILY [facility] Last Admin: 03/06/18 08:42 Dose: 40 mg Clonidine (Catapres) 0.1 mg PO Q4H PRN PRN Reason: Systolic BP > 180 Famotidine (Pepcid) 20 mg PO DAILY [facility] Last Admin: 03/06/18 08:42 Dose: 20 mg Fidaxomicin (Dificid) 200 mg PO BID [facility] Stop: 03/10/18 21:01 Last Admin: 03/06/18 08:42 Dose: 200 mg Gabapentin (Neurontin) 600 mg PO HS [facility] Last Admin: 03/05/18 20:44 Dose: 600 mg Guaifenesin (Mucinex) 600 mg PO BID PRN PRN Reason: Cough Guaifenesin (Robitussin Sf) 200 mg PO Q4H PRN PRN Reason: Cough Hydralazine HCl (Apresoline) 10 mg SLOW IVP Q4H PRN PRN Reason: Systolic BP > 180 Loratadine (Claritin) 10 mg PO DAILYPRN PRN PRN Reason: Sinus Symptoms Meloxicam (Mobic) 7.5 mg PO DAILY [facility] Last Admin: 03/06/18 08:42 Dose: 7.5 mg Mineral Oil/White Petrolatum (Eucerin Cream) 0 gm TOP BIDPRN PRN PRN Reason: Dry Skin Ondansetron HCl (Zofran Odt) 4 mg PO Q6H PRN PRN Reason: Nausea/Vomiting Ondansetron HCl (Zofran) 4 mg IVP Q6H PRN PRN Reason: Nausea/Vomiting Last Admin: 02/27/18 04:52 Dose: 4 mg Phenol (Chloraseptic [place] 180 Ml Bot) 0 ml PO PRN PRN PRN Reason: Sore Throat Saccharomyces Boulardii (Florastor) 250 mg PO BID [facility] Last Admin: 03/06/18 08:42 Dose: 250 mg Sodium Chloride (Flush - Normal Saline) 10 ml IVF Q12HR [facility] Last Admin: 03/06/18 08:43 Dose: Not Given Sodium Chloride (Flush - Normal Saline) 10 ml IVF PRN PRN PRN Reason: Saline Flush Sodium Chloride ([place] Nasal [place] 0.65%) 0 ml EA NARE QIDPRN PRN PRN Reason: Nasal Congestion
--- NOTE | 2018-03-06 12:46 | DIS ---
DATE OF ADMISSION: 02/26/2018 DATE OF DISCHARGE: 03/06/2018 PRIMARY CARE PHYSICIAN: John Castillo M.D. DISCHARGE DISPOSITION: Home (assisted living facility [facility]). PRIMARY DISCHARGE DIAGNOSES: Clostridium difficile colitis, sepsis due to problem #1, hypotension, r esolved. Nausea and vomiting, corrected. SECONDARY DISCHARGE DIAGNOSES: Anxiety and depression, benign enlargement of prostate, chronic diast olic heart failure, chronic kidney disease stage 3, hypertension, dyslipidemia, obesity with body mas s index 30, obstructive sleep apnea on CPAP, chronic pacemaker, and Waldenstrom macroglobulinemia. PRIMARY PROCEDURE/OPERATION: None. RADIOLOGICAL INVESTIGATION: Chest x-ray normal. SIGNIFICANT LABORATORY DATA: Hemoglobin 11.2, INR 1.0, creatinine 0.69. LFT normal. Electrolytes n ormal. Cardiac enzymes negative. BNP 15.6. Urinalysis suggestive of UTI and urine culture grew E. coli, which was contaminated. Blood culture negative. C. difficile was positive and subsequently an tigen positive and toxin negative. DISCHARGE MEDICATIONS: Patient will finish Dificid 200 mg twice daily for 10 days. The patient will continue following medications: Aspirin 325 mg p.o. daily, azelastine nasal spray d aily, Celexa 40 mg p.o. daily, Lasix 20 mg p.o. daily, gabapentin 600 mg p.o. at bedtime, Mucinex 600 mg twice daily, ibrutinib 420 mg p.o. daily, lisinopril 20 mg p.o. daily, Imodium p.r.n., Mobic 7.5 mg p.o. daily, omeprazole 20 mg p.o. daily, Florastor 250 mg p.o. daily, and Aldactone 12.5 mg p.o. d aily. CONTRAINDICATIONS: None. CODE STATUS: FULL CODE. INPATIENT CONSULTANTS: Dr. Shipley was consulted while in hospital. GI team, Dr. Joy was following daniel yousif in hospital. TEST RESULTS PENDING ON DISCHARGE: None. ALLERGIES: No known drug allergy. DISCHARGE PLAN: Post hospital, the patient will follow up with primary care physician in 1 week. Th e patient will follow up with Dr. Joy as instructed as well as Dr. Shipley as instructed. HOSPITAL COURSE: An 87-year-old male who was admitted by Dr. Carbajal. Please see his H and P for formerly [facility] er detail. The patient was admitted on 02/27/2018 with complaint of nausea, vomiting, and diarrhea. The patient was found with C. diff colitis. He was septic on admission with leukocytosis. The allie ent was also suspected for UTI and that is why initially he was given antibiotic therapy for UTI as w jacy. Though, the patient was not having any UTI symptoms, we consulted Dr. Shipley and he recommended not to treat UTI during this admission, rather we focused on treatment with C. difficile infection. Patient was given Dificid while in hospital. We consulted Dr. Shipley as well as targeting acquisition officer. Patient had 2 episodes of C. diff infection so far and it was far apart and that is why gastroenterol ogist is not considering fecal transplantation at this point, but that can be done as an outpatient b asis. Patient had significant improvement in the leukocytosis as well as his diarrhea resolved. His nausea and vomiting resolved. He was doing very well with physical therapy. This patient lives at assisted living facility and based on their policy until C. diff came back nega tive, he cannot go back to that facility and that is why we have to repeat C. diff and now last C. di fficile is antigen positive and toxin negative hours. Lab cannot do C. difficile testing on formed s tool. At this point, as long as assisted living facility will take him, then the patient is absolute ly medically stable for discharge back to that facility with the above-mentioned medication. The patient is seen and examined at bedside today. Please see my progress note from today for furthe r details.
[2018-03-06 15:57] VITALS: TEMP 98.3
[2018-03-06 18:04] VITALS: BP 147/67
--- NOTE | 2018-04-03 23:20 | EKG ---
Test Reason : Blood Pressure : / mmHG Vent. Rate : 080 BPM Atrial Rate : 080 BPM P-R Int : 230 ms QRS Dur : 162 ms QT Int : 446 ms P-R-T Axes : 022 001 227 degrees QTc Int : 514 ms Sinus rhythm with 1st degree A-V block Left bundle branch block Abnormal ECG Confirmed by FLOR WOLF [id number]), medical transcription editor JOSUE BERG ([id number]) on 04/03/2018 11:20:36 PM Referred By: Confirmed By:FLOR WOLF
== END 2018-03-06 16:56 | disposition home or self-care (01) | DRG 872 ==
LOC: ERS 19:33 → T4-B 23:20
PROVIDERS: ADMIT Family Medicine; ATTEND Family Medicine
DX: A41.9 Sepsis, unspecified organism (principal); I95.9 Hypotension, unspecified; A04.71 Enterocolitis due to Clostridium difficile, recurrent; I13.0 Hypertensive heart and chronic kidney disease with heart failure and stage 1 through stage 4 chronic kidney disease, or unspecified chronic kidney disease; D72.0 Genetic anomalies of leukocytes; I50.32 Chronic diastolic (congestive) heart failure; C88.0 Waldenstrom macroglobulinemia; N18.3 Chronic kidney disease, stage 3 (moderate); F41.9 Anxiety disorder, unspecified; F32.9 Major depressive disorder, single episode, unspecified; N40.0 Benign prostatic hyperplasia without lower urinary tract symptoms; E78.5 Hyperlipidemia, unspecified; G47.33 Obstructive sleep apnea (adult) (pediatric); E66.9 Obesity, unspecified; Z95.0 Presence of cardiac pacemaker; Z87.891 Personal history of nicotine dependence; E86.0 Dehydration; R60.0 Localized edema; Z68.30 Body mass index [BMI] 30.0-30.9, adult
CPT/HCPCS: 36415; 51701; 71045; 80048; 80053; 81003; 81015; 82553; 83605; 83690; 83735; 83880; 84484; 85007; 85025; 85027; 85610; 85730; 87040; 87077; 87086; 87186; 87324; 87449; 87493; 93005; 94660; 94760; 96361; 96374; 96375; A4216; G8978-GP-CJ; G8979-GP-CI; J0360; J0696; J1940; J2405